=== PATIENT | male | born 1945 | race Caucasian/White ===

== ENCOUNTER 2018-05-11 12:26 | Inpatient (IN) ==
[2018-05-11] MEDS ORDERED: LEVAQUIN 500 MG/D5W 500 MG/100 ML IVPB IV SCH (13:45)
--- NOTE | 2018-05-11 15:57 | EKG Report ---
Test Performed on : 05/11/2018 3:56:16 PM Test Reason : chest pain Blood Pressure : / mmHG Vent. Rate : 081 BPM Atrial Rate : 081 BPM P-R Int : 116 ms QRS Dur : 078 ms QT Int : 372 ms P-R-T Axes : 083 079 085 degrees QTc Int : 432 ms Sinus rhythm. with occasional premature ventricular complexes. Otherwise normal ECG When compared with ECG of 14-APR-2017 13:02, premature ventricular complexes. are now present Confirmed by Renzo KOEHLER, Sergey Florence ([id number]) on 05/12/2018 5:44:41 PM
[2018-05-11] MEDS: DUONEB (A & A) INH PRN (16:30)
[2018-05-11 16:45] LABS: ALLEN TEST YES; BE 2.7 mmoll (-3.0-3.0); BLOOD TYPE ARTERIAL; HCO3-(ACT) 26.8 mmoll (20.0-26.0); O2(CT) 20.3 mL/dL (15.0-23.0); PO2(98.6) 79 mmHg (60-100); SAMPLE BLOOD; SAO2 97.3 % (95.0-100.0); THB 16.1 g/dL (11.5-17.4); pH(98.6) 7.35 (7.35-7.45)
[2018-05-11 16:48] LABS: PCO2(98.6) 54 mmHg (35-45)
[2018-05-11 16:49] LABS: MODALITY CANNULA; O2HB 89.5 % (95.0-99.0)
[2018-05-11 17:18] LABS: INR 0.94; PROTIME 13.3 Seconds (11.0-16.0)
[2018-05-11 17:51] LABS: TSH 1.26 uIUmL (0.27-4.20)
[2018-05-11] MEDS: ZOSYN 3.375 GM in NS 50 ML IV SCH (17:53)
[2018-05-11] MEDS: LOVENOX SUBQ SCH (17:54)
[2018-05-11] MEDS: SOLU-MEDROL IV SCH ×3 (17:54→23:28)
[2018-05-11] MEDS: PROTONIX IV SCH (17:54)
[2018-05-11] MEDS: SODIUM CHLORIDE 0.9% INJ SCH (17:54)
--- NOTE | 2018-05-11 18:42 | Diag Imaging Result Doc PS360 ---
EXAM: CT THORAX W/CONTRAST HISTORY: pneumonia TECHNIQUE: Emergency CT chest with contrast COMPARISON: 10/12/2013 FINDINGS: There is a small left-sided pleural effusion measuring approximately 18 mm posteriorly and inferiorly in the midline. No right-sided effusion. Left lower lobe opacity has an appearance more typical of a primary lung malignancy rather than pneumonia. This measures at least 3.8 x 5.2 cm. Adjacent to this is a smaller 2.0 cm nodule. There are several prominent left hilar lymph nodes. There is marked constriction on the left main pulmonary vein with possible tumor extending into the vein extending into the left atrium. No cardiomegaly. No thoracic aortic aneurysm or dissection. Severe emphysema. IMPRESSION: 1.Left lower lobe mass with postobstructive atelectasis and hilar adenopathy with constriction about the pulmonary vein and possible extension to the left atrium 2.Severe emphysema 3.Small left pleural effusion This exam was performed using automated exposure control, adjustment of mA or kV according to patient size, and/or use of iterative reconstruction technique. Electronically signed by Bryan Senior 05/11/2018 6:39 PM
--- NOTE | 2018-05-11 23:50 | HISTORY AND PHYSICAL ---
CHIEF COMPLAINT: Shortness of breath, cough, wheezing, not able to pee. HISTORY OF PRESENT ILLNESS: This is a 73-year-old white gentleman, noncompliant. Came to my office this morning after seen in the emergency room last night. Apparently, he was seen by Dr. Murray. He had a significant phimosis, not able to pee. He needs a circumcision. He also had weight loss and coughing for the last 1 month. The patient has a left hilar mass, with a lower lobe obstruction. He had a prior pneumoconiosis from asbestosis. Basically, admitted to the hospital for acute COPD exacerbation, evaluation of left lower lobe mass, and also bladder outlet obstruction at the phimosis level, for circumcision. Discussed with the patient's caregivers, which are his sisters. As a result, a hospital admission was warranted. 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 PAST SURGICAL HISTORY: Reported skin cancer from the face and prior stent placement in the heart. Details are not known. MEDICINES: Albuterol, aspirin, cephalexin, isosorbide 60 daily, lisinopril 20 daily, metformin 500 p.o. b.i.d., simvastatin 40 daily. ALLERGIES: Levaquin. SOCIAL HISTORY: . Two kids. Lives in [place]. Smoking 1 pack a day for the last 60 years. No smoking. No drug abuse. FAMILY HISTORY: Father of stroke at 84. Mom of old age. Sister had lung cancer. HEALTH MAINTENANCE: He is not up-to-date on vaccinations. PHYSICAL EXAMINATION: VITAL SIGNS: Temperature is 98 degrees. Vitals are stable. 5 feet 11, 153 pounds. HEENT: Titubation of the head noted. Small skin tags in the right upper eyelid. Pupils equal, react to light. Cataracts present TMs are normal. Nose and throat congested. NECK: Supple. No lymphadenopathy. No carotid bruit. CHEST: Poor air entry. Expiratory wheezing. Distant heart sounds. ABDOMEN: Belly is soft, nontender. Good bowel sounds. GENITOURINARY: Left inguinal hernia present. Phimosis present. RECTAL: Deferred. EXTREMITIES: Right foot, he has neuropathy calcis, with a pressure bandage applied. Decreased pulses on the left leg. NEUROLOGIC: No obvious neurological deficits. INVESTIGATIONS: PT/INR was normal. ABG: pH is 7.35, pCO2 54, PO2 79, on 28%. Cardiac enzymes were normal. ProBNP was normal. CEA level 9.1. PSA 1.64. B12 and TSH are normal. EKG: Normal sinus. Nothing acute for ischemia or injury current. Chest CT reported left lower lobe mass, with post obstruction, with hilar adenopathy, and severe emphysema, small left pleural effusion. CBC on 05/10/2018: White cell count 6.5, hematocrit 47, platelets 172,000. SMA-7: Sodium 141, potassium 4.9, chloride 101, BUN 21, creatinine 1.0, glucose 111, magnesium 2.0. LFTs were normal. ASSESSMENT AND PLAN: 1. A 73-year-old white gentleman admitted to the hospital with chronic obstructive pulmonary disease, prior pneumoconiosis from asbestosis, left hilar mass with atelectasis, needs a tissue diagnosis. Plan is oxygen, bronchodilators, and IV steroids, IV antibiotics. Consult with Dr. Walter for endobronchial biopsy. 2. Deep vein thrombosis prophylaxis with Lovenox. 3. 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 Continue on IV Zosyn. 4. Coronary artery disease. EKG was normal. Continue on secondary prevention with isosorbide, aspirin, simvastatin. 5. Hypertension, on lisinopril. 6. Hyperlipidemia, on Zocor. 7. Bladder outlet obstruction, with phimosis. Consult with Dr. Murray. Will plan to do both procedures simultaneously if possible during the bronchoscopy. 8. Highly suspicious for the lung cancer. We will also consult with Dr. Jung and reconcile home medications. We will follow up. cc: Juan Francisco James MD
[2018-05-12] MEDS: ZOSYN 3.375 GM in NS 50 ML IV SCH ×4 (00:18→17:40)
[2018-05-12] MEDS: SOLU-MEDROL IV SCH ×3 (05:26→21:30)
[2018-05-12] MEDS ORDERED: PYRIDIUM PO PRN (07:36)
[2018-05-12] MEDS: BREO ELLIPTA 200/25 MCG INH INH SCH (07:56)
[2018-05-12] MEDS: DUONEB (A & A) INH PRN ×3 (07:58→19:27)
[2018-05-12] MEDS ORDERED: ASPIRIN EC PO SCH (09:00)
[2018-05-12] MEDS: PRINIVIL PO SCH (09:48)
[2018-05-12] MEDS: IMDUR PO SCH (09:48)
[2018-05-12] MEDS: PROTONIX IV SCH (12:52)
--- NOTE | 2018-05-12 13:27 | PROGRESS NOTE ---
DATE: 05/12/2018 SUBJECTIVE: I was called by the patient's primary care physician yesterday regarding readmission to the hospital for biopsy of his lung lesion. The patient was seen as a consult over the weekend for concern for urinary retention and phimosis. The patient has a very tight phimotic ring which does cause him some discomfort as he is trying to urinate. He says it develops into pressure when trying to empty out through his phimotic excess foreskin. The patient has voided several times since admission and overall appears to be emptying his bladder. He did say that he voided this morning and had minimal discomfort at that time. Urology was consulted regarding consideration for circumcision while he is inpatient and try to coordinate with his bronchoscopy with pulmonary. OBJECTIVE: Vital signs: Heart rate 80, respirations 18, blood pressure 128/72 , oxygen saturation 94% on 2 L nasal cannula. General: No acute distress. Resting comfortably in bed. Obvious tremor-like activity with the patient moving [id number] repetitively throughout the evaluation. Respiratory: On nasal cannula. Slight increased work of breathing with a hoarse cough with some wheezing present, most prominent at the bases. Cardiovascular: No evidence tachycardia. Regular rate and rhythm. No evidence of lower extremity edema. Abdomen: Abdomen soft, nontender, nondistended. No palpable masses or hepatosplenomegaly. : Suprapubic tenderness. Bilateral testicles without masses or nodularity. His foreskin is quite tight with a very small phimotic ring with a very miniscule opening. Neurologic: Gross motor and sensory intact. The patient does have a resting essential tremor which he states has been present for a number of years. SKIN: Right lower extremity wrapped. ASSESSMENT AND PLAN: Mr. Haas is a 73-year-old with COPD, coronary artery disease, type 2 diabetes, essential tremor, hyperlipidemia, hypertension, recently diagnosed left lower lobe mass, who presents in evaluation for concern for urinary retention and phimosis. The patient overall empties his bladder well. He has a low PVR and likely has minimal prostatic voiding complaints. His major complaint is having to strain to empty out his foreskin. He describes it ballooning and it only dribbles and sprays out and that is due to the small opening present. The patient does have some discomfort by this and desires circumcision. Discussed with him the risks, benefits, and alternatives to surgical procedure including worsening pain, tethering of the penis, bleeding, infection, need for secondary procedures. The patient's primary physician would like to try to coordinate his care between Urology and Pulmonology. In talking with the OR today it seems that it may be difficult to coordinate both procedures as they need to be done in different rooms and scheduling may prohibit doing both at the same time. The patient is currently on the schedule to undergo a circumcision with cystoscopy tomorrow at approximately 12 o'clock. We will try to coordinate with Pulmonary if possible at the time of that versus another day. Offered an opportunity to undergo a circumcision and cystoscopy today. However, I told him it would likely be in the afternoon as there is already a full operating schedule and we would be an add-on case. He expressed desire to eat this morning and his NPO order was removed and the patient was able to eat. We will plan for him to be NPO at midnight for procedure tomorrow. cc: MD Juan Francisco Garay MD MTDD
--- NOTE | 2018-05-12 15:29 | ECHO REPORT ---
ORDER DATE: 05/11/2018 INDICATION: Embolism, hypertension, hyperlipidemia. History of lung cancer. FINDINGS: 1. The right atrium is normal size at 3.1 cm. 2. Moderate tricuspid regurgitation. The RV systolic pressure is estimated at 91 mmHg suggesting significant pulmonary hypertension. 3. The right ventricle appears to be normal in size with normal RV systolic function. 4. Trace pulmonic insufficiency. 5. Normal left atrial size at 3 cm. 6. No mitral valve prolapse. Mild mitral regurgitation. 7. Left ventricle appears to be normal in size with an end-diastolic dimension of 4.8 cm. Normal wall thicknesses with a posterior and interventricular septal thickness at 0.8 cm each. The LV systolic function does appear to be reduced. It is a somewhat difficult study as, at times, the patient appears to be tachycardic and views are difficult to obtain. Definity echo contrast was used. The EF estimate appears to be in the 35%-40% range. With Definity echo contrast, there appears to be some evidence of anterior septal hypokinesis. 8. Aortic valve opens well and is trileaflet. No evidence of stenosis or insufficiency. 9. The aorta appears normal on visualized segments. 10. No pericardial effusion seen. cc: MD Juan Francisco Kulkarni MD
--- NOTE | 2018-05-12 16:12 | CONSULTATION ---
DATE OF CONSULTATION: 05/12/2018 REQUESTING PROVIDER: Juan Francisco James MD. REASON FOR CONSULTATION: Lung cancer. 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 He has been admitted directly from Dr. James's office for acute COPD exacerbation, evaluation of left lower lobe mass and bladder outlet obstruction with phimosis. At the time of my exam, patient is lying in bed in no acute stress. Two of his sisters are at the bedside. He reports SOB and cough with scant phlegm for a while, but no hemoptysis, fever, chill, unintentional weight change, wheezing, chest pain or palpitation. PAST MEDICAL HISTORY: 1. Left lower lobe mass, newly found, without tissue diagnosis 2. COPD. 3. Coronary artery disease, status post coronary artery stenting. 4. Type 2 diabetes. 5. Essential tremors. 6. Hyperlipidemia. 7. Hypertension. 8. Left inguinal hernia. 9. Phimosis, too severe to be able to urinate; followed by Dr. Murray. 10. Pleural plaques due to asbestosis in the left lung. 11. Skin cancer 12. Tobacco abuse, ongoing. PAST SURGICAL HISTORY: 1. Sinus surgery 2. Coronary artery stenting SOCIAL HISTORY: The patient smokes one pack per day for the last 60 years. He tried to quit smoking one time for 2 weeks and failed. No history of alcohol or illicit drug use. smoking before for about two weeks, but failed. FAMILY HISTORY: Father of stroke at 84. Mother of old age. One sister, who is a heavy smoker, has lung cancer and diabetes. PHYSICAL EXAMINATION: Vital Signs: Temperature 97.8, blood pressure 128/72, pulse 80, respiratory rate 18, oxygen saturation 94% with nasal cannula at 2 L. General: Malnourished; uncontrollable body shaking with shaking voice and nodding head. HEENT: Trachea midline. Mucosa pink and moist; Cardiovascular: Regular rate and rhythm, without murmur noted. Respiratory: Patient has shallow breathing. diminished breathing sounds bibasilarly with early inspiratory crackles in the left lower lobe noted. No wheezing. Gastrointestinal: Normoactive bowel sounds in all 4 quadrants. Nontender, soft, nondistended. Extremities: Trace edema bilateral lower extremities. No clubbing, no cyanosis. Neurologic: Alert and oriented x 3, with general weakness. Speech is fluent. Able to more all extremities equally bilaterally. IMAGING DATA: CT on 05/11/2018 revealed a left lower lobe mass with postobstructive atelectasis and hilar adenopathy with constriction about the pulmonary vein and possible extension to the left atrium, severe emphysema and small left pleural effusion. 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 He has been admitted directly from Dr. James's office for acute COPD exacerbation, evaluation of the left lower lobe mass and bladder outlet obstruction with phimosis. 1. COPD exacerbation. Continue antibiotics, steroids and bronchodilators as prescribed. 2. Acute hypoxemic respiratory failure due to COPD exacerbation, left lower lobe mass and small pleural effusion. Will continue supplemental oxygen and bronchodilators. Will check ABG; routine ABG and CXR if indicated. 3. Left lower lobe mass, adjacent pulmonary nodule and left hilar lymphadenopathy. CT on 05/11/2018 showed left lower lobe mass measured at least 3.8 x 5.2 cm adjacent to a smaller 2 cm nodule with prominent left hilar lymphadenopathy. A diagnostic bronchoscopy is scheduled. 4. Continue GI and DVT prophylaxis. Thank you for the courtesy of this consult. Dictated by ADONAY Turner for Magno Walter MD cc: ADONAY Turner MD Jagan Reddy, MD [facility]
--- NOTE | 2018-05-12 18:18 | HEMO/ONC CONSULTATION ---
DATE: 05/12/2018 CHIEF COMPLAINT: We have been consulted for further evaluation and management of the patient's new lung mass. HISTORY OF PRESENT ILLNESS: Mr. Haas is a 73-year-old male who presented to the emergency department on 05/10/2018 complaining of shortness of breath, cough, wheezing, unable to urinate. The patient was seen by Dr. Murray at that time. The patient has significant ecchymosis, unable to pee and was discharged at that time to follow up with Dr. Murray as an outpatient. The patient presented to Dr. James's office the next day and the patient was still complaining of unable to urinate, shortness of breath and he had a chest x-ray done in the office due to weight loss and a cough until the last month, and that chest x-ray showed a left hilar mass with a lower lobe obstruction. The patient was admitted at that time for COPD exacerbation, evaluation of the left lower lobe mass, bladder outlet obstruction. PAST MEDICAL HISTORY: COPD, coronary artery disease, type 2 diabetes mellitus, essential tremor, hyperlipidemia, hypertension, left inguinal hernia, ecchymosis, plaques due to asbestosis in the left lung and tobacco abuse. PAST SURGICAL HISTORY: Skin cancer from face and prior stent placement in the heart. SOCIAL HISTORY: Smokes a pack a day. Denies any alcohol or illicit drug use. FAMILY HISTORY: Stroke, lung cancer. ALLERGIES: Allergic to Levaquin, caffeine and potassium. HOME MEDICATIONS: Aspirin 81 mg, Keflex, Imdur, Zestril, Glucophage, Medrol Dosepak, Pyridium and Zocor. REVIEW OF SYSTEMS: As mentioned in HPI. PHYSICAL EXAMINATION: Vital Signs: Temperature 97.8, heart rate 74, respiratory rate 18, blood pressure 139/86, 96% on nasal cannula. General: Patient is awake, lying in bed , no acute distress noted. HEENT: Anicteric. Pupils PERRLA. Mucous membranes appear to be dry. Neck: Supple. Trachea midline. Lymph node survey, no palpable lymphadenopathy. Chest: Bilateral breath sounds with expiratory wheezing. Cardiovascular: S1, S2. Regular rate and rhythm. Abdomen: Soft, nontender. Bowel sounds present in all quadrants. No hepatosplenomegaly noted. Skin: Warm, dry and intact. Right foot with pressure bandage applied. Neurologic: Alert and oriented x 3. No focal deficits noted. LABORATORY DATA: CEA is 9.1. RADIOLOGY RESULTS: Chest CT showed left lower lobe mass with a postobstructive atelectasis and hilar adenopathy with restriction of the pulmonary vein and possible extension to left atrium, severe emphysema, a small left pleural effusion. ASSESSMENT AND PLAN: 1. Left hilar mass: Dr. Walter has been consulted. Plans for an endobronchial biopsy. Continue to monitor and follow up on biopsy results. 2. Chronic obstructive pulmonary disease: Continue with oxygen and bronchodilators and steroids and antibiotics as ordered. 3. Type 2 diabetes mellitus: Continue with recommendations per primary medical team. 4. Coronary artery disease: Continue with recommendations per primary medical team. 5. Hypertension. 6. Hyperlipidemia. 7. Bladder outlet obstruction with thrombosis: Continue recommendation by Dr. Murray who has been consulted. Plan of care discussed with Dr. Jung. Dictated by ADONAY Shell for Jorge Alberto Jung MD Patient seen and examined. As above. Patient with a chronic smoking history, COPD, admitted with left hilar mass with possible extension to the left atrium. There are Saba has seen him with plans for bronchoscopy tomorrow. Check echocardiogram. CEA is 9.1. We will plan for a PET scan outpatient. Await pathology and decide further management. Jorge Alberto Jung M.D. cc: ADONAY Shell MD Jagan Reddy, MD [facility]
[2018-05-12] MEDS: ZOCOR PO SCH (21:30)
--- NOTE | 2018-05-13 00:56 | PROGRESS NOTE ---
DATE: 05/12/2018 SUBJECTIVE: Patient is a little better. The daughter was at bedside. REVIEW OF SYSTEMS: None reported. EXAM: Is 94% 3 L nasal cannula. Vitals are stable.HEENT: Titubation noted. Decreased breath sounds in the left base. Heart: Sounds are regular. Belly: Is soft, nontender. Phimosis present in inguinal hernia on the left side. Right leg I saw the pictures. He has some ulcers on the right ankle noted. LABORATORY DATA: ABG pH is 7.35, pCO2 54, PO2 79, carboxyhemoglobin 7. Cardiac enzymes are negative. ProBNP 713, CEA level 9.1. PSA 1.6, B12, TSH is normal. Echocardiography report, ejection fraction about 40%. Significant pulmonary hypertension based on the TR velocity. ASSESSMENT AND PLAN: 1. Left lower lobe mass waiting for tissue diagnosis. I appreciate Dr. Walter consult. Will do the bronchoscopy. 2. Phimosis with outlet obstruction. Circumcision as per Dr. Murray. 3. Ischemic cardiomyopathy, stable. 4. Diabetes. Will check the A1c tomorrow and right foot ulcers on wound care. Continue bronchodilators. Appreciated all the consultants. Will follow up. LEVEL OF DOCUMENTATION: 25 minutes. cc: Juan Francisco James MD
[2018-05-13] MEDS: ZOSYN 3.375 GM in NS 50 ML IV SCH ×4 (01:07→17:57)
[2018-05-13] MEDS: SOLU-MEDROL IV SCH ×3 (05:06→22:38)
--- NOTE | 2018-05-13 07:10 | PROGRESS NOTE ---
DATE: 05/13/2018 SUBJECTIVE: The patient was NPO at midnight last night in preparation for circumcision and cystoscopy today with Urology, and possible bronchoscopy with Pulmonary today, with a biopsy of his lung mass. The patient overall states he is doing well, he has been voiding without complaints. He denies any suprapubic tenderness or dysuria. Tolerated good p.o. intake yesterday. Remains on nasal cannula. OBJECTIVE: Vitals: Temperature 97.5 degrees, heart rate 70, blood pressure 119 /90, oxygen saturation 98% on 2 L nasal cannula. General: No acute distress. Resting comfortably in bed. Respiratory: 2 L nasal cannula, with slight increased work of breathing. No shortness of breath. Abdomen: Soft, nontender, nondistended. : No suprapubic tenderness. Phimotic ring present, with narrow opening. No erythema or swelling. ASSESSMENT AND PLAN: Mr. Haas is a 73-year-old with COPD, coronary artery disease, type 2 diabetes, essential tremor, hyperlipidemia, hypertension, recently diagnosed with left lower lobe mass, who presented in evaluation for urinary retention and phimosis. In talking with the patient he desires a circumcision to assist in his painful urination. He does not appear to have much prostatic voiding complaints, and his prostate is quite small on AILEEN. Discussed with him proceeding with circumcision today. Reviewed the risks, benefits, and alternatives including worsening pain, redness of the glans, tethering of the penis, bleeding, need for secondary procedures, risk of skin infections. Described the procedure in detail and reviewed each step of the procedure with the patient as well as discussed the risks and benefits of cystoscopy. We will plan to perform that later today in the operating room following his bronchoscopy. We will have to change rooms from the endo suite to the main OR, which has been cleared by Anesthesia and the OR board. All of the patient's questions and concerns were addressed. We will plan for the OR later today. cc: MD Juan Francisco Garay MD MTDD
[2018-05-13 07:19] LABS: HEMATOCRIT 46.4 % (42.0-52.0); HEMOGLOBIN 15.2 g/dL (14.0-18.0); MCHC 32.8 g/dL (33-37); MCV 91.5 FL (81-99); MPV 10.9 FL (7.4-10.4); RBC 5.07 XMIL (4.7-6.1); RDW 14.1 % (11.5-14.5); WBC 7.36 X1000 (4.8-10.8)
[2018-05-13 07:24] LABS: INR 0.97; PROTIME 13.6 Seconds (11.0-16.0)
[2018-05-13 07:29] LABS: HEMOGLOBIN A1C 8.7 % (4.8-6.0)
[2018-05-13] MEDS: PRINIVIL PO SCH (08:03)
[2018-05-13] MEDS: IMDUR PO SCH (08:03)
--- NOTE | 2018-05-13 08:55 | HEMO/ONC PROGRESS NOTE ---
DATE: 05/13/2018 SUBJECTIVE: Patient continues to slightly feel better at this time. He says his shortness of breath has improved with oxygen. OBJECTIVE: Vital Signs: Temperature 97.9 degrees, heart rate 68, respiratory rate 18, blood pressure 127/86 sat 100% on nasal cannula. General: Patient is awake, lying in bed, in no acute distress noted. HEENT: Anicteric. Pupils PERRLA. Mucous membranes are noted to be dry. Cardiovascular: Normal S1, S2. Regular rate and rhythm. Chest: Bilateral breath sounds diminished bilaterally with some crackles in the lower lobes. Abdomen: Soft, nontender. Bowel sounds present in all 4 quadrants. Neurologic: Alert and oriented x3. No focal deficits noted. LABORATORY DATA: White blood cell count 7.36, hemoglobin 15.2, hematocrit 46.4 , platelets are 175. ASSESSMENT/PLAN: 1. Left hilar mass: Plan is to biopsy today with Dr. Walter. Continue to monitor and follow up on biopsy results. 2. Chronic obstructive pulmonary disease: Continue recommendations per Pulmonology. 3. Ecchymosis without obstruction: The patient is scheduled for a circumcision and cystoscopy Continue per urologist recommendations. Plan of care discussed with Dr. Jung. Dictated by ADONAY Shell for Jorge Alberto Jung MD Patient seen and examined. As above. Patient is status post bronchoscopy. Discussed with Dr. Walter. He has an obstructive tumor involving a segment of the left lower lobe. Pathology results are pending. Plan for outpatient PET scan after discharge. Jorge Alberto Jung M.D. cc: ADONAY Shell MD Jagan Reddy, MD [facility]
[2018-05-13] MEDS: DUONEB (A & A) INH PRN ×2 (09:49→15:49)
[2018-05-13] MEDS: BREO ELLIPTA 200/25 MCG INH INH SCH (09:50)
[2018-05-13] MEDS ORDERED: SODIUM CHLORIDE 0.9% 10 ML ONE ×2 (10:22→10:23)
[2018-05-13] MEDS ORDERED: XYLOCAINE 2% VISCOUS ONE (10:22)
[2018-05-13] MEDS ORDERED: EPINEPHRINE ONE (10:22)
[2018-05-13] MEDS ORDERED: XYLOCAINE 2% ONE (10:22)
[2018-05-13] MEDS ORDERED: DIPRIVAN 1% ONE (12:30)
[2018-05-13] MEDS ORDERED: FENTANYL ONE (12:31)
[2018-05-13] MEDS ORDERED: AMIDATE ONE (12:48)
[2018-05-13] MEDS ORDERED: DECADRON ONE (12:49)
[2018-05-13] MEDS ORDERED: ZEMURON ONE (12:49)
[2018-05-13] MEDS ORDERED: BACITRACIN OINTMENT ONE (13:13)
[2018-05-13] MEDS ORDERED: MARCAINE 0.5% ONE (13:13)
[2018-05-13] MEDS ORDERED: KEFZOL 1 GM/D5W 1 GM/50 ML IVPB ONE (13:27)
[2018-05-13] MEDS ORDERED: NEOSTIGMINE ONE (13:33)
[2018-05-13] MEDS ORDERED: ROBINUL ONE (13:33)
[2018-05-13] MEDS ORDERED: VENTOLIN HFA ONE (13:35)
--- NOTE | 2018-05-13 14:43 | Diag Imaging Result Doc PS360 ---
EXAM: CHEST-PORTABLE HISTORY: post bronchoscopy TECHNIQUE: Chest single view COMPARISON: 04/14/2017 FINDINGS: The lungs are hyperexpanded. No pneumothorax. The heart is not enlarged. The vessels are not distended. There are no infiltrates. No effusion identified. There is a large calcified left-sided pleural plaque. IMPRESSION: No postprocedural pneumothorax. Electronically signed by Bryan Senior 05/13/2018 2:41 PM
[2018-05-13] MEDS: SODIUM CHLORIDE 0.9% INJ SCH (15:39)
[2018-05-13] MEDS: PROTONIX IV SCH (15:39)
[2018-05-13] MEDS: HUMALOG SUBQ SCH ×2 (17:58→22:50)
[2018-05-13] MEDS: ZOCOR PO SCH (22:38)
--- NOTE | 2018-05-13 23:51 | OPERATIVE NOTE ---
PROCEDURE DATE: 05/13/2018 REFERRING PHYSICIAN: Dr. James. PROCEDURE PERFORMED: This is a dictation for bronchoscopy. INDICATION: Lung mass and pneumonia on x-ray and CAT scan. DESCRIPTION OF PROCEDURE: Consent obtained. Conscious sedation administered by Anesthesia. We passed the bronchoscope through the LMA tube. Normal vocal cord movements. All major segments visualized. There is a left lower lobe superior segment blocking tumor, 100%. We took washings and brushings and endobronchial biopsies. No significant bleeding. Empirically, to prevent bleeding, we did spray diluted epinephrine. Chest x-ray guidance used. Fluoroscopy guidance used for sampling. Post procedure fluoroscopy x-ray showed no pneumothorax. The patient tolerated the procedure well. A chest x-ray is requested. IMPRESSION: 1. Lung mass. 2. 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 PLAN: Awaiting cytology, microbiology, and pathology results. cc: MD Juan Francisco Lang MD
[2018-05-14] MEDS: DUONEB (A & A) INH PRN ×4 (00:20→21:20)
[2018-05-14] MEDS: ZOSYN 3.375 GM in NS 50 ML IV SCH ×5 (00:25→23:08)
--- NOTE | 2018-05-14 03:37 | PROGRESS NOTE ---
DATE: 05/13/2018 SUBJECTIVE: The patient is doing better and no complaints. PHYSICAL EXAMINATION: Vital Signs: Temperature is 97 degrees. Vitals are stable. HEENT Examination: Titubation noted. Respiratory: Decreased breath sounds, left base. Cardiovascular: Distant heart sounds. Abdomen: Belly is soft, nontender. Extremities: Right foot ulcers are noted. INVESTIGATIONS: CBC is normal. PT/INR is normal. A1c 8.7. ASSESSMENT AND PLAN: 1. Waiting for bronchoscopy. Left lower lobe mass. Based on the histology, further recommendations will be followed. 2. Waiting for his circumcision for phimosis. 3. Diabetes. Follow up on insulin sliding scale with insulin coverage and decrease the intravenous steroids. 4. Ischemic cardiomyopathy, stable. 5. Appreciated all the consultants, Dr. Murray, Dr. Walter, and Dr. Jung. cc: Juan Francisco James MD
[2018-05-14] MEDS: HUMALOG SUBQ SCH ×4 (06:52→23:08)
[2018-05-14] MEDS: BREO ELLIPTA 200/25 MCG INH INH SCH (08:17)
[2018-05-14] MEDS: PRINIVIL PO SCH (08:52)
[2018-05-14] MEDS: IMDUR PO SCH (08:52)
--- NOTE | 2018-05-14 08:52 | HEMO/ONC PROGRESS NOTE ---
DATE: 05/14/2018 SUBJECTIVE: The patient continues to feel okay at this time. No new complaints. OBJECTIVE: Vital Signs: Temperature 97.7 degrees, heart rate 71, respiratory rate 18, blood pressure 148/81, saturation 99% on mask. General: The patient is awake, lying in bed. No acute distress noted. HEENT: Anicteric. Pupils PERRLA. Mucous membranes moist. Cardiovascular: S1, S2. Regular rate and rhythm. Chest: Bilateral breath sounds. Diminished bilaterally. Abdomen: Soft, nontender. Bowel sounds are present in all 4 quadrants. Neurologic: Alert and oriented x3. No focal deficits noted. ASSESSMENT AND PLAN: 1. Left hilar mass. The patient had bronchoscopy yesterday with Dr. Walter. The patient has an obstructive tumor involving left lower lobe. Pathology results are pending. Plan is for outpatient PET scan once he is discharged. Continue recommendations at this time. 2. Chronic obstructive pulmonary disease. Continue recommendations per Pulmonology. 3. Phimosis without obstruction. Continue recommendations per Urology. Dictated by ADONAY Shell for Jorge Alberto Jung MD cc: ADONAY Shell MD Jagan Reddy, MD [facility]
[2018-05-14] MEDS: SOLU-MEDROL IV SCH ×2 (08:53→23:08)
--- NOTE | 2018-05-14 08:53 | OPERATIVE NOTE ---
PROCEDURE DATE: 05/13/2018 PREOPERATIVE DIAGNOSES: 1. Phimosis. 2. Dysuria. 3. Urinary retention. POSTOPERATIVE DIAGNOSES: 1. Phimosis. 2. Dysuria. 3. Urinary retention. PROCEDURES: 1. Circumcision. 2. Cystoscopy. SURGEON: Antione Murray MD. HELPER METAL HANGING: None. ANESTHESIA: Endotracheal intubation. BLOOD LOSS: 10 mL. DRAINS: None. COMPLICATIONS: None. SPECIMENS REMOVED: Foreskin. Urine for cytology OPERATIVE FINDINGS: The patient had a very tight phimosis. It was difficult for him to urinate through. I was able to open this up with a Hemostat. I was able to extract over the head of the penis and the glans appeared to be relatively normal with the meatus slightly hypospadiac. Foreskin was able to retract over the head of the penis, which exposed the glans and appeared to be relatively normal. I performed a circumcision and had good approximation of skin edges. Following this, the patient underwent cystoscopy with flexible cystoscope which showed a normal urethra. No evidence of prostatic obstruction, no mucosal abnormalities in the bladder. There was a small amount of sediment that almost looked like crystals present in the bladder. These were extracted for analysis with Peeriojoann. We will send this as a specimen. INDICATION FOR PROCEDURE: Mr. Haas is a 73-year-old who initially presented to the emergency room over the weekend complaining of spraying of his urine, painful urination, inability to completely empty due to a very tight phimosis. The patient was able to urinate while in the emergency room and subsequently was going to be brought back to the office in several weeks for evaluation and planned circumcision. However, he was seen by his primary care physician on Friday who had recently diagnosed him with lung mass and plans to have a bronchoscopy performed by Pulmonary while inpatient. The patient was subsequently admitted with plans to undergo bronchoscopy and circumcision. In talking with the patient, I recommended proceeding to circumcision, as well as undergoing cystoscopy due to his voiding symptoms. Risks, benefits, and alternatives of both procedures were discussed with the patient and patient elected to proceed and informed consent was obtained. DESCRIPTION OF PROCEDURE: The patient was brought to the operating room, placed on the operating table in supine position. He underwent general anesthesia with placement of endotracheal tube. He received preoperative antibiotics and was then prepped and draped in usual sterile fashion. After this, a preoperative time-out was performed with all parties in agreement , including anesthesia, surgical, nursing staff. A penile block was then performed with 0.25% Marcaine injecting 20 mL. Following this, a hemostat was used to open up the foreskin, which allowed for easy retraction over the glans of the penis. This was retracted and able to be anatomical in appearance. There did appear to appropriate foreskin with a collar that appeared to be relatively normal in size and no internal incision was necessary because adequate length was already obtained. A Prolene stitch was then used as retraction stitch through the glans and then the external prepuce was then measured and then remeasured to ensure good positioning and appropriate lenght prior to incision. The scalpel was then used to excise the external foreskin circumferentially and attached several hemostats to the foreskin and then we were able to act as retractors. Metzenbaum scissors were then used to dissect the foreskin off the corporal bodies, and electrocautery was then used to cut the overlying foreskin circumferentially all the way around, removing the excess foreskin, which was then sent for pathology. Following this, hemostasis was obtained with electrocautery. Good hemostasis was visualized and then a 3-0 chromic suture was then placed at the 12 o'clock and 6 o'clock positions to bring the shaft skin and coronal collar together. Then approximated circumferentially with good approximation of skin edges bilaterally. Cosmetic result was obtained at which time the flexible scope was obtained and flexible cystoscopy was undertaken. The patient's meatus was slightly hypospadiac, but still on the glans itself. I was able to get the scope in, which showed a normal caliber urethra, no evidence of stricture disease. Entered all the way into the posterior urethra and found the prostate which was normal in size. No evidence of obstruction. Passed this all the way up into the bladder, inspecting the bladder. There were no mucosal abnormalities. No bladder stones in diverticulum, no cellules. There was a small amount of almost orange sediment present at the base of the bladder. This was barbotaged out and sent for analysis. It almost appeared to be crystal like in appearance. The patient's bladder was then drained with a Sharma catheter. Telfa with bacitracin was then applied circumferentially around the penis and a Efren wrap was then attached and secured with silk tape. The patient was then awoken and was taken to recovery in stable condition and we transferred back to the floor for recovery. DISPOSITION: The patient will have his dressing removed tomorrow and from Urology standpoint, likely be able to go home following this. cc: MD Juan Francisco Garay MD MTDD
--- NOTE | 2018-05-14 13:15 | PROGRESS NOTE ---
DATE: 05/14/2018 SUBJECTIVE: Postop day 1 from circumcision and cystoscopy. The patient has been doing well overnight. He denies any issues with voiding. Denies any penile pain. He states that he has been voiding with a good stream and denies any dysuria. The patient also underwent a bronchoscopy yesterday. Denies any shortness of breath or worsening cough. OBJECTIVE: Vital signs: Heart rate 78, blood pressure 145/77, oxygen saturation 95%. General: No acute distress. Resting comfortably in bed. Respiratory: Nasal cannula in place. Breathing comfortably without increased work of breathing. Abdomen: Soft, nontender, nondistended. : Circumcision site dressing was removed, continues to have a small amount of edema of penile shaft with glans slightly white with appearance of lichen sclerosis. Incision well-approximated with no evidence of any active bleeding. The patient has a glanular hypospadiac meatus. ASSESSMENT AND PLAN: Mr. Haas is a 73 year old who is postop day 1 from circumcision and cystoscopy. The patient's circumcision incision looks well healed. I removed his dressing this morning. The patient states he has been voiding without issue. Denies any penile pain or dysuria. Overall, I think he is doing well. From a urologic standpoint, he would be cleared to go home with follow-up in 1 month in the office. All patient's questions and concerns were addressed this morning. I told him to give us a call after discharge to schedule his follow-up appointment. The office previously called him to schedule an appointment after he was admitted to the hospital earlier in the week. cc: MD Juan Francisco Garay MD MTDD
[2018-05-14] MEDS: SODIUM CHLORIDE 0.9% INJ SCH (14:16)
[2018-05-14] MEDS: PROTONIX IV SCH (14:16)
[2018-05-14] MEDS: ZOCOR PO SCH (23:08)
--- NOTE | 2018-05-15 00:21 | PROGRESS NOTE ---
DATE: 05/14/2018 SUBJECTIVE: I appreciated Dr. Antione Murray's, and Dr. Walter's consults. Lung biopsy was done. I discussed with Dr. Brown, and he reported to me this afternoon cytology positive for non- small cells. Final diagnosis still pending. The patient is grossly tremulous, with essential tremor. REVIEW OF SYSTEMS: None reported. PHYSICAL EXAMINATION: Vital Signs: Temperature is 97 degrees, pulse is 76, blood pressure is 101/54. HEENT: Within normal limits. Chest: Clear. Heart: Sounds are regular. The rest of the exam is benign. ASSESSMENT AND PLAN: 1. Left lung mass, endobronchial obstruction, presumed to be lung malignancy, non-small cell. We will discuss with Dr. Jung. 2. Diabetes. Sliding scale, with insulin coverage. 3. Ischemic cardiomyopathy, stable. 4. Right foot ulcer, slowly healing. 5. Status post circumcision for phimosis, for bladder outlet obstruction. Continue present medical therapy. Will make the plans after discussing with Dr. Jung. I appreciate all the consultants. LEVEL OF DOCUMENTATION: 25 minutes. cc: Juan Francisco Jaems MD
[2018-05-15] MEDS: ZOSYN 3.375 GM in NS 50 ML IV SCH ×2 (05:42→13:04)
[2018-05-15] MEDS: HUMALOG SUBQ SCH ×2 (06:42→11:06)
--- NOTE | 2018-05-15 08:06 | HEMO/ONC PROGRESS NOTE ---
DATE: 05/15/2018 SUBJECTIVE: The patient continues to slightly feel better. Shortness of breath slowly improving. OBJECTIVE: Vital Signs: Temperature 97.9 degrees heart rate 70, respiratory rate 16, blood pressure 129/68, satting 97% on nasal cannula. General: Patient is awake, lying in bed with no acute distress noted. HEENT: Anicteric. Pupils PERRLA. Mucous membranes appear to be dry. Cardiovascular: S1, S2. Regular rate and rhythm. Chest: Bilateral breath sounds diminished bilaterally. Abdomen: Soft, nontender. Bowel sounds present in all 4 quadrants. Neurologic: Alert and oriented x3. No focal deficits noted. ASSESSMENT AND PLAN: 1. Left hilar mass: Preliminary results on pathology is non-small cell lung cancer colon. The patient, once he gets stronger and out of the hospital, we will get him scheduled for PET scan to begin treatment as soon as possible. We will continue to monitor closely. 2. Chronic obstructive pulmonary disease. Continue recommendations per Pulmonology and primary medical team. 3. Supportive care: Patient to continue drinking protein shakes and get out of bed as much as possible. 4. Deep venous thrombosis prophylaxis. Continue Lovenox as ordered. Plan of care discussed with Dr. Jung. Dictated by ADONAY Shell for Jorge Alberto Jung MD cc: ADONAY Shell MD Jagan Reddy, MD [facility]
[2018-05-15] MEDS: BREO ELLIPTA 200/25 MCG INH INH SCH (08:47)
[2018-05-15] MEDS: DUONEB (A & A) INH PRN (08:47)
[2018-05-15] MEDS: PRINIVIL PO SCH (09:32)
[2018-05-15] MEDS: SOLU-MEDROL IV SCH (09:32)
[2018-05-15] MEDS: IMDUR PO SCH (09:32)
[2018-05-15 11:53] VITALS: BP 119/64
[2018-05-15] MEDS: PROTONIX IV SCH (13:04)
[2018-05-15] MEDS: LOVENOX SUBQ SCH (13:05)
--- NOTE | 2018-05-16 23:59 | DISCHARGE SUMMARY ---
ADMISSION DATE: 05/11/2018 DISCHARGE DATE: 05/15/2018 DISCHARGE DIAGNOSIS: Acute shortness of breath due to underlying chronic obstructive pulmonary disease with [id number] lung cancer on the left lower lobe. 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 2. Coronary artery disease with ischemic cardiomyopathy. 3. Type 2 diabetes. 4. Essential tremor. 5. Hyperlipidemia. 6. Hypertension. 7. Left inguinal hernia. 8. Bladder outlet obstruction with phimosis. 9. Tobacco abuse. CONSULTANTS: 1. Jorge Alberto Jung MD. 2. Magno Walter MD. 3. Antione Murray MD. PROCEDURES: 1. Bronchoscopy with endobronchial tumor in the left lower lobe. 2. Circumcision and cystoscopy by Dr. Murray. BRIEF HISTORY: Please see the H and P that was done by Dr. James on 05/21/2018. In brief, he is a 73-year-old white gentleman admitted directly from my office with shortness of breath, cough, wheezing, and unable to urinate due to phimosis. He was seen in the ER the day before yesterday. He has other comorbid conditions as above. He is not maintaining his secondary prevention with underlying medical problems. Two of his sisters (caregivers) are patients of mine and wanted to seek medical attention. HOSPITAL COURSE: The patient was given oxygen, bronchodilators, IV antibiotics, IV steroids. Appropriate consultations were obtained. The patient had circumcision and cystoscopy done by Dr. Murray, and Dr. Walter did a bronchoscopy with biopsy of endobronchial tumor. Dr. Lacy reported it looked like non-small cell. Results were discussed with the patient, and Dr. Jung is going to follow up staging as an outpatient with a PET scan. Rest of the hospital course was uneventful. LABORATORIES: CBC: White cell count 7.3, hematocrit 46, platelets 175,000. PT 13, INR 0.97. ABG on 2 L: pH is 7.35, pCO2 of 54, pO2 of 79. A1c 8.7. Cardiac enzymes were negative. ProBNP 700. CEA level 9.1. PSA 1.6. B12 level 400. TSH was normal. RADIOLOGY PROCEDURES: Chest CT showed left lower lobe mass with adenopathy and severe emphysema. DISCHARGE INSTRUCTIONS: 1. Quit smoking. 2. Lisinopril 20 mg daily, isosorbide 60 daily, aspirin 81 mg daily, Zocor 40 daily, Medrol Dosepak, metformin 500 p.o. b.i.d., Levaquin 500 daily for 10 days. Continue on Breo 1 puff in the morning, Spiriva 1 in the evening. 3. Follow up with Dr. Jung for outpatient PET scan for staging and further treatment. cc: MD Jorge Alberto Veliz MD Mamoun I. Najjar, MD Patrick Guthrie, MD
== END 2018-05-15 16:32 | disposition home health service (06) | DRG 728 ==
LOC: DIRADM 12:26 → 3N 15:02
PROVIDERS: ADMIT Internal Medicine; ATTEND Internal Medicine
CPT/HCPCS: 71010; 71045; 71260; 76000; 80053; 81001; 82378; 82550; 82607; 82805; 82948; 83036; 83880; 84153; 84443; 84484; 85025; 85027; 85610; 87015; 87070; 87102; 87116; 87147; 87205; 87206; 88112; 88304; 88305; 88313; 88341; 88342; 88343; 93005; 93010; 93306; 94640; 94761; 96374; 96375; 99284; A9270; C8929; C9113; G0103; G0461; G0462; J0171; J0690; J1100; J1650; J1815; J1956; J2270; J2405; J2543; J2920; J3010; J7030; Q9957; Q9967; S0020; S0164; XXXXX

== ENCOUNTER 2019-05-18 19:33 | Inpatient (IN) ==
[2019-05-18] MEDS ORDERED: MORPHINE IV ONE (23:30)
[2019-05-18] MEDS ORDERED: PULMICORT INH ONE (23:32)
[2019-05-18] MEDS ORDERED: XOPENEX NEB INH ONE (23:33)
[2019-05-18] MEDS ORDERED: NS NEB INH SCH (23:45)
--- NOTE | 2019-05-19 00:27 | EKG Report ---
Test Performed on : 05/19/2019 00:24:45 AM Test Reason : SOB Blood Pressure : / mmHG Vent. Rate : 077 BPM Atrial Rate : 077 BPM P-R Int : 102 ms QRS Dur : 064 ms QT Int : 362 ms P-R-T Axes : 070 089 104 degrees QTc Int : [address] elevation, consider inferior injury or acute infarct ACUTE FL / STEMI Consider right ventricular involvement in acute inferior infarct Abnormal ECG When compared with ECG of 11-MAY-2018 15:56, Current undetermined rhythm precludes rhythm comparison, needs review ST elevation now present in Inferior leads ST now depressed in Lateral leads Unconfirmed Result
[2019-05-19 00:39] LABS: BASO# 0.09 X1000 (0.0-0.2); BASO% 2.7 % (0.0-0.8); EOS# 0.06 X1000 (0.0-0.7); EOS% 1.8 % (0.0-10.0); HEMOGLOBIN 12.4 g/dL (14.0-18.0); LYMPH# 0.74 X1000 (1.2-3.4); LYMPH% 22.4 % (20.5-51.1); MCH 29.2 PG (27-31); MCHC 31.8 g/dL (33-37); MONO# 0.58 X1000 (0.11-0.59); MONO% 17.5 % (1.7-9.3); MPV 11.6 FL (7.4-10.4); NEUT# 1.84 X1000 (1.4-6.5); NEUT% 55.6 % (42.2-75.2); PLT 130 X1000 (130-400); RBC 4.24 XMIL (4.7-6.1); RDW 17.6 % (11.5-14.5); WBC 3.31 X1000 (4.8-10.8)
[2019-05-19 01:00] LABS: AGAP 9; ALB/GLOB RATIO 1.9; ALBUMIN 3.7 g/dL (3.5-5.0); ALKALINE PHOSPHATASE 73 U/L (32-122); BUN 22 mg/dL (8-22); CALCIUM 9.1 mg/dL (8.8-10.2); CHLORIDE 99 mmol/L (98-107); COSMO 288; CREATININE 0.7 mg/dL (0.7-1.2); ESTIMATED GFR > 60; GLUCOSE 156 mg/dL (70-104); GOT 16 U/L (10-34); GPT 12 U/L (10-44); POTASSIUM 5.4 mmol/L (3.5-5.1); SODIUM 141 mmol/L (136-145); TCO2 33 mmol/L (25-35); TOTAL BILIRUBIN 0.32 mg/dL (0.20-1.00); TOTAL PROTEIN 5.7 g/dL (6.3-8.3)
[2019-05-19 01:02] LABS: ALLEN TEST YES; BE 8.9 mmoll (-3.0-3.0); BLOOD TYPE ARTERIAL; HCO3-(ACT) 31.9 mmoll (20.0-26.0); METHB 1.2 % (0.0-1.5); O2HB 96.3 % (95.0-99.0); PO2(98.6) 162 mmHg (60-100); SAMPLE BLOOD; SAO2 99.9 % (95.0-100.0); THB 12.3 g/dL (11.5-17.4); pH(98.6) 7.38 (7.35-7.45)
[2019-05-19 01:10] LABS: MODALITY BI PAP; PCO2(98.6) 61 mmHg (35-45)
--- NOTE | 2019-05-19 01:36 | PROVIDER DOCUMENTATION ---
This chart was entered by Radha Landers Scribe, acting as scribe for Yaneth Washnigton MD. HPI-Respiratory General - General Chief Complaint: Shortness of Breath Stated Complaint: COPD/LUNG CANCER PT Time Seen by Provider: 05/18/19 23:19 Source: patient, family Allergies/Adverse Reactions: Patient Allergies Allergy/AdvReac Type Severity Reaction Status Date / Time No Known Allergies Allergy Verified 05/20/19 16:15 Home Medications: Home Medication List Medication Instructions Recorded Confirmed Last Taken Type Aspirin EC 81 mg PO DAILY 10/12/13 05/19/19 05/18/19 08:00 History Isosorbide Mononitrate E.r. [Imdur] 30 mg PO DAILY 10/12/13 05/19/19 05/18/19 08:00 History SIMVAstatin [Zocor] 40 mg PO DAILY 10/12/13 05/19/19 05/18/19 08:00 History Metformin [Glucophage] 500 mg PO BID CC 05/11/18 05/19/19 05/18/19 08:00 History Vitamin B Complex [Super B-50 1 ea PO DAILY 05/19/19 05/19/19 05/18/19 08:00 History Complex] Zinc 50 mg PO DAILY 05/19/19 05/19/19 05/18/19 08:00 History Fluticasone/Vilanterol [Breo 1 ea INHALATION DAILY #1 aer.pow.ba 05/24/19 Unknown Rx Ellipta Inhaler] Levalbuterol Neb [Xopenex Neb] 1.25 mg .SEE ORDER TID #90 neb 05/24/19 Unknown Rx Levofloxacin [Levaquin] 500 mg PO DAILY #10 tab 05/24/19 Unknown Rx Methylprednisolone [Medrol Dosepak] 4 mg PO DIRECTED #1 pkg 05/24/19 Unknown Rx Primidone [Mysoline] 50 mg PO BID #60 tab 05/24/19 Unknown Rx Tiotropium [place] Inhaler 1 puff INH RTDAILY #30 inhaler 05/24/19 Unknown Rx [Spiriva] - History of Present Illness-Resp Nature of Presenting Problem: PT IS A 74 YOWM PRESENTING W/FAMILY TO ER W/CC SOB WORSENING LAST FEW DAYS. PT STS MVMT WORSENS SOB. PT ON 3L O2 AT HOME, NOT HAD TO INCREASE. PT HAS CPAP, WORKED 1ST NIGHT USED BUT HASN'T WORKED ANYMORE. NO COUGH, CP, AND FEVER. HX LUNG CANCER, COPD, WI, STENT AND DM. PT ON RX BABY ASPIRIN, IMDUR, AND METFORMIN . PT ON IMMUNOTHERAPY FOR CANCER. Severity in ED: reports: moderate Onset/Duration: reports: other (FEW DAYS) Timing: reports: still present Context: reports: other (LUNG CANCER PT, ON IMMUNOTHERAPY) Cough Quality/Degree: reports: no cough Episode Frequency: chronic episodes Current Respiratory Medication Therapy: Initiated other (O2 3L AT HOME) Modifying Factors: improves with: other (MVMT WORSENS) Associated Symptoms: reports: shortness of breath. denies: fever/chills, heart racing, hurts to breathe Similar Symptoms Previously?: Yes Recently seen or treated by another doctor?: Yes (CANCER PT ) Review of Systems - Adult - REVIEW OF SYSTEMS - ADULT Constitutional: reports: no symptoms reported. denies: fever, fatique, night sweats Eyes: reports: no symptoms reported Ears, Nose, Mouth & Throat: reports: no symptoms reported Cardiovascular: reports: no symptoms reported. denies: chest pain, orthopnea, PND Respiratory: reports: see HPI, dyspnea on exertion, shortness of breath. denies: cough, excessive sputum production, hemoptysis Gastrointestinal: reports: no symptoms reported Genitourinary: reports: no symptoms reported Musculoskeletal: reports: no symptoms reported Integumentary: reports: no symptoms reported Neurological: reports: no symptoms reported Psychiatric: reports: no symptoms reported Endocrine: reports: no symptoms reported Hematologic/Lymphatic: reports: no symptoms reported Allergic/Immunologic: reports: no symptoms reported All Other Systems: Reviewed and Negative Past History - Adult - PAST MEDICAL HISTORY-ADULT Review of Records: reports: Old Records Reviewed, Medications Reviewed, Social history reviewed & non-contributory. Major Childhood Illnesses: reports: denies history Cardiovascular: reports: HTN, hyperlipidemia, WI Respiratory: reports: COPD, cancer Gastrointestinal: reports: denies history Obstetrical/Gynecological: reports: denies history Genitourinary: reports: denies history Musculoskeletal: reports: denies history Neurological: reports: other (essential tremor for most of life, no treatment) Endocrine/Immune: reports: Diabetes Diabetes controlled by:: PO Meds Other Conditions: reports: other cancer - PRIOR SURGERIES/PROCEDURES Surgical/Procedure History: reports: cardiac stent, other - IMMUNIZATION STATUS Childhood Immunizations: See Nurse Assessment Flu Vaccine: See Nurse Assessment - FAMILY HISTORY Family History: reviewed, not pertinent - SOCIAL HISTORY Smoking: cigarettes, greater than 1 pack/day Provider spent 3-5 mins advising pt. on dangers of tobacco.: Discussed manners to quit use, and f/u contacts for add'l counseling. Substance Use: none/never Living Situation: family Physical Exam-General - PHYSICAL EXAM-ADULT Initial Vital Signs Reviewed: Yes - CONSTITUTIONAL General Appearance: alert, moderate distress (respiratory distress), cachetic. negative: lethargic, slow to respond, combative - EYES Eyes: PERRL/EOMI - HEAD, EARS, NOSE, MOUTH & THROAT HENMT: normocephalic/atraumatic, moist mucous membranes - NECK Neck: non-tender, full range of motion, supple, normal inspection - RESPIRATORY Respiratory: chest non-tender, no pleuratic chest pain, decreased breath sounds, accessory muscle use. negative: normal breath sounds, rhonchi, wheezing - CARDIOVASCULAR Cardiovascular: normal peripheral pulses, regular rate, rhythm - GASTROINTESTINAL (ABDOMEN) Abdominal Exam: normal bowel sounds, non tender, soft - MUSCULOSKELETAL Back Exam: normal inspection Extremity: normal range of motion, non-tender, normal inspection - SKIN Integumentary: normal turgor, warm/dry, pallor (SLIGHT). negative: normal color - NEUROLOGIC Neurologic: grossly normal, no motor/sensory deficits. negative: abnormal cerebellar tests, abnormal rating examiner II-XII, aphasia - PSYCHIATRIC Psych/Mental Status: normal thought content, normal thought process, oriented x 3, anxious Progress - PLAN OF CARE/RESULTS Progress/Plan/Lab Results: Orders Category Date Time Status Admit - [facility] Routine AdmDCTranf 05/19/19 03:14 Active Activity - Up with Assistance ORDERED Care 05/19/19 03:14 Active Apply Mechanical Device [QM] ORDERED Care 05/19/19 03:14 Completed Cardiac Monitoring DIRECTED Care 05/18/19 23:26 Completed FSBS/Accucheck Result AC + HS Care 05/19/19 03:14 Active Intake and Output-Strict Q 8-HR ASSESS Care 05/19/19 03:14 Active Nursing- MD Consult Request ROUTINE Care 05/19/19 03:14 Completed Nursing- MD Consult Request ROUTINE Care 05/19/19 03:14 Completed Nursing- Obtain EKG ONCE Care 05/18/19 23:26 Completed Z-Document. for Tele Applied ORDERED Care 05/19/19 03:14 Completed MD [Physician/Provider Consults] Routine Cons 05/19/19 03:14 Ordered Physician/Provider Consults Routine Cons 05/19/19 03:14 Ordered CHEST-2 VIEWS [RAD] Stat Exams 05/18/19 23:26 Completed ABG [RESP] Routine Lab 05/19/19 00:52 Completed BASIC METABOLIC PANEL [CHEM] Routine Lab 05/20/19 05:25 Completed CBC WITH DIFF [HEME] Routine Lab 05/20/19 05:25 Completed CBC WITH ELECTRONIC DIFF [HEME] Stat Lab 05/19/19 00:10 Completed COMPREHENSIVE METABOLIC PANEL [CHEM] Stat Lab 05/19/19 00:10 Completed INFLUENZA SCREEN A/B Stat Lab 05/19/19 00:25 Completed PRO B-NATRIURETIC PEPTIDE Stat Lab 05/18/19 00:10 Completed TROPONIN T HIGH SENSITIVITY Stat Lab 05/19/19 00:10 Completed TSH Stat Lab 05/19/19 00:10 Completed Acetaminophen [Tylenol] Med 05/19/19 03:14 Discontinued 650 mg PO Q6H PRN PRN Albuterol 2.5MG/Ipratrop 0.5MG [Duoneb (A & A)] Med 05/19/19 03:30 Dis continued 3 ml INH RTQ4H Aspirin EC Med 05/19/19 09:00 Discontinued 81 mg PO DAILY Budesonide [Pulmicort] Med 05/18/19 23:32 Discontinued 0.5 mg INH NOW ONE Insulin Human Regular [Humulin R] Med 05/19/19 07:00 Discontinued See Protocol SUBQ 0700,1100,1600,2100 Isosorbide Mononitrate E.r. [Imdur] Med 05/19/19 09:00 Discontinued 30 mg PO DAILY Levalbuterol Neb [Xopenex Neb] Med 05/18/19 23:33 Discontinued 1.25 mg INH NOW ONE Levofloxacin 500 mg/D5w [Levaquin 500 mg/D5w] Med 05/19/19 01:50 Discontinued 500 mg in 100 ml IV NOW Levofloxacin 500 mg/D5w [Levaquin 500 mg/D5w] Med 05/20/19 01:00 Discontinued 500 mg in 100 ml IV Q24H Mag Sulf/Vitamin B Comp W-C/Zn [Vicon-C] Med 05/19/19 09:00 Discontinued 1 each PO DAILY Morphine Med 05/18/19 23:30 Discontinued 2 mg IV NOW ONE Ondansetron [Zofran] Med 05/19/19 03:14 Discontinued 4 mg IV Q4H PRN PRN SIMVAstatin [Zocor] Med 05/19/19 09:00 Discontinued 40 mg PO DAILY Sodium Chloride 0.9% Neb [Ns Neb] Med 05/18/19 23:45 Discontinued 5 ml INH DIRECTED Zinc Sulfate Med 05/19/19 09:00 Discontinued 220 mg PO DAILY Aerosol Treatments Routine Oth 05/18/19 23:32 Completed Aerosol Treatments Routine Oth 05/19/19 03:14 Completed Aerosol Treatments Stat Oth 05/18/19 23:32 Completed Aerosol Treatments Stat Oth 05/19/19 03:14 Completed BIPAP Stat Oth 05/18/19 23:26 Active Telemetry [OM.EQ] Routine Oth 05/19/19 03:14 Active EKG [EKG] Stat Ther 05/18/19 23:25 Draft Transfer/Admit Order [TRANSFER] Routine Transfer 05/19/19 02:11 Completed Result Diagrams: 05/20/19 05:25 05/20/19 05:25 - REASSESSMENT Reassessment #1 Time Reassessed: 01:36 Status: improving (pt more relaxed and tolerating the BiPAP. not as jittery on exam. resp distress improving.) - EKG 1 Time of EKG reading by physician:: 00:24 EKG Read and Signed by:: Alex Marquis EKG Interpretation (*Must complete 3 of following elements*): Abnormal Rate: 77 Rhythm: UNDETERMINED RHYTHM [place]: normal QRS: normal MI Interval: normal ST Wave: normal Comments: +ARTIFACT PRESENT, PT HAS RESTING TREMOR - CONSULTS/PCP/HOSPITALIST Notification #1 *Consult/PCP/Hospitalist*: Dr. Garnett Time Discussed: 01:51 Consult Disposition: Will see in ED, Admit Departure - Departure Date of Disposition Decision: 05/19/19 Time of Disposition Decision: 01:37 DIAGNOSIS: Respiratory distress Disposition: ADMITTED INPATIENT 09 Certified Medical Emergency: Emergent Condition: Stable - Critical Care Note This patient required my direct & personal management of CC.: No Attestation - Physician/ JI Attestation Patient care was provided by Advanced Practice Provider:: No The physician spent face to face time with patient:: Yes Advanced Practice Provider documentation review:: Supervising physician onsite and consulted in the evaluation and care of this patient. The physician did have a face to face encounter with the patient. This chart was documented by the indicated scribe, (Radha Landers Scribe) and accurately reflects the services I performed and decisions made by me, Yaneth Washington MD, as attested by the provider's signature.
[2019-05-19] MEDS ORDERED: LEVAQUIN 500 MG/D5W 500 MG/100 ML IVPB IV ONE (01:50)
--- NOTE | 2019-05-19 02:56 | HISTORY AND PHYSICAL ---
PRIMARY CARE PHYSICIAN: Dr. James. CHIEF COMPLAINT: Shortness of breath. HISTORY OF PRESENTING ILLNESS: A 74-year-old male with a history of lung cancer, COPD, diabetes mellitus type 2 and coronary disease, who presented to emergency department with several days history of worsening shortness of breath. The patient states that recently CPAP machine quit working and he was unable to get the audiovisual lead technician out there to repair it. The patient states that over the past several days he was getting more short of breath, even with mild exertion and subsequently he had come to the emergency department. In the ED, he was evaluated, he seemed to be in some mild distress and he was put on BiPAP and he had marked improvement. Due to his presenting symptoms, it was thought that he will require admission for further management. At the time of my examination, patient denied any headache, nausea, vomiting, diarrhea, chest pain, hemoptysis, but complained of shortness of breath and cough. PAST MEDICAL HISTORY: Includes lung cancer, COPD, diabetes mellitus type 2, hypertension, hyperlipidemia, coronary artery disease. PAST SURGICAL HISTORY: Coronary stent. ALLERGIES: Goody's powders. CURRENT MEDICATIONS: Include albuterol nebulizers q.4 hours, aspirin 81 mg p.o. daily, isosorbide mononitrate 30 mg p.o. daily, metformin 500 mg p.o. b.i.d., simvastatin 40 mg p.o. daily. SOCIAL HISTORY: He is a former smoker, quit about 2 months ago. Denies any history of alcohol or illicit drug use. FAMILY HISTORY: No history of coronary artery disease. REVIEW OF SYSTEMS: Fourteen point review of system is as in HPI. Other systems negative. PHYSICAL EXAMINATION: GENERAL: The patient is resting more comfortably on BiPAP. VITAL SIGNS: Temperature 98.6 degrees, pulse 82, respirations 20, blood pressure 119/67. HEENT: Atraumatic, normocephalic. Extraocular movements intact. PERRLA. NECK: No masses. CHEST: Rhonchi. CARDIOVASCULAR: Regular rate and rhythm. ABDOMEN: Soft. Positive bowel sounds. EXTREMITIES: No edema. NEUROLOGIC: He is awake, alert, oriented x3. GENITOURINARY: No bladder distention. SKIN: Warm. LABORATORIES AND STUDIES: WBCs 3.31, hemoglobin 12.4, hematocrit 39.0, platelets 130,000. Blood gas shows pH of 7.38, pCO2 of 61. Sodium 141, potassium 5.4, chloride 99, CO2 is 33, BUN is 22, creatinine 0.7. Glucose is 156. ASSESSMENT: A 74-year-old male with a history of lung cancer, COPD, diabetes mellitus type 2, and hypertension, presents to emergency department with several days history of worsening shortness of breath. He was evaluated in the emergency department. He was in some mild distress, he was put on BiPAP and he had marked improvement. Due to his presenting symptoms, he will require admission for further management. 1. Acute on chronic respiratory failure. 2. Chronic obstructive pulmonary disease exacerbation. 3. Lung cancer. 4. Diabetes mellitus type 2. 5. Hypertension. PLAN: 1. We will admit patient to PVC. 2. Continue patient on BiPAP. 3. We will continue with DuoNebs and IV antibiotics. 4. Consult his oncologist. 5. Monitor blood glucose and put patient on sliding scale insulin regimen. 6. We will monitor blood pressure. Resume antihypertensive agent. 7. Put patient on DVT prophylaxis with SCDs. 8. We will continue to follow and reassess. Make further recommendation based on patient's clinical course. cc: Grady Garnett MD
[2019-05-19] MEDS: LEVAQUIN 500 MG/D5W 500 MG/100 ML IVPB IV SCH (03:14)
[2019-05-19] MEDS ORDERED: ZOFRAN IV PRN (03:14)
[2019-05-19] MEDS ORDERED: TYLENOL PO PRN (03:14)
[2019-05-19] MEDS: DUONEB (A & A) INH SCH ×6 (03:30→23:02)
--- NOTE | 2019-05-19 06:23 | Diag Imaging Result Doc PS360 ---
CHEST-2 VIEWS - 05/18/2019 INDICATION: SOB COMPARISON: 05/13/2018 FINDINGS: Stable severe COPD. Stable dense calcified pleural plaque in the left lateral lung. Stable pleural scarring at the left lung base. No infiltrates or edema. Heart size remains top normal. IMPRESSION: Severe COPD with pulmonary scarring. No change from prior. Electronically signed by Mario Vanessa 05/19/2019 6:20 AM
[2019-05-19] MEDS: HUMULIN R SUBQ SCH ×7 (06:39→21:45)
[2019-05-19] MEDS ORDERED: SODIUM CHLORIDE 0.9% INJ SCH (08:30)
[2019-05-19] MEDS: ASPIRIN EC PO SCH (10:04)
[2019-05-19] MEDS: SOLU-MEDROL IV SCH ×2 (10:05→16:11)
[2019-05-19] MEDS: PROTONIX IV SCH (10:07)
[2019-05-19] MEDS: ZOSYN 3.375 GM in NS 50 ML IV SCH ×3 (10:07→20:40)
[2019-05-19] MEDS: LOVENOX SUBQ SCH (10:09)
[2019-05-19] MEDS: ZOCOR PO SCH (10:10)
[2019-05-19] MEDS: ZINC SULFATE PO SCH (10:10)
[2019-05-19] MEDS: IMDUR PO SCH (10:10)
[2019-05-19] MEDS: VICON-C PO SCH (10:10)
--- NOTE | 2019-05-19 17:30 | HEMO/ONC CONSULTATION ---
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 HISTORY OF PRESENT ILLNESS: Mr. Haas is a 74-year-old male with a history of lung cancer, COPD, type 2 diabetes, and CAD, who presented to the emergency department with several-day history of worsening shortness of breath. He states that his CPAP machine has quit working and he has been unable to get a information technology technician to repair it. He states he has been getting more short of breath over the last few days, even with mild exertion. Per evaluation in the ER, he was in some mild distress, was placed on BiPAP and had marked improvement. He was admitted for further evaluation. The patient was also hospitalized in [facility] approximately a month ago, for shortness of breath and pain in his arm. He thought it was his heart, which was ruled out. He was placed on full-time home oxygen at that time at 3 L continuously. He noticed at that time his essential tremor had worsened. He had lost 8 pounds. The patient is treated in her office for left lung cancer. He is on immunotherapy with Imfinzi. He is dosed every two weeks. His last treatment was on 05/11/2019. His last PET scan showed a minimal decrease in his cancer. The patient does continue to smoke and his COPD is worsening. PAST MEDICAL HISTORY: Lung cancer, COPD, type 2 diabetes mellitus, hypertension, hyperlipidemia, coronary artery disease, and nicotine abuse. PAST SURGICAL HISTORY: Coronary stent. ALLERGIES: Goody's Powders. SOCIAL HISTORY: The patient is a smoker. He states he smokes only a few a day. He continues to smell of cigarette smoke in the office. I am aware that he has told the admitting physician that he quit about two months ago. He denies any history of alcohol or illicit drug abuse. REVIEW OF SYSTEMS: Pertinent positives are noted in the HPI. All other review of systems is negative. PHYSICAL EXAMINATION: Vital Signs: Temperature 97.5 degrees, pulse rate 77, respiratory rate 22, blood pressure 104/56, O2 saturation 98% on 3 L via nasal cannula. He is in 0/10 pain. General: The patient is in no acute distress, on BiPAP. He has essential tremor. He is underweight with a BMI of 17.2. HEENT: Sclerae is anicteric. Oral mucosa is dry. PERRLA. Cardiovascular: Regular rate and rhythm. Respiratory: Rhonchi heard throughout. Gastrointestinal: Abdomen is soft, nondistended, nontender. Bowel sounds are present. Extremities: No lower extremity edema noted. Neurological: Alert and oriented x3. Essential tremor to upper body. Skin: Warm, dry, and intact. No petechiae, ecchymoses, or rashes noted. LABORATORY DATA: WBC 3.31, hemoglobin 12.4, hematocrit 39.0, platelet count 130,000, ANC 1.84. Potassium 5.4. ProBNP 445. RADIOLOGY: Chest x-ray shows severe COPD with pulmonary scarring. There is no change from prior exam. ASSESSMENT: 1. Acute on chronic respiratory failure. 2. Chronic obstructive pulmonary disease exacerbation. 3. Stage 3 left lung squamous cell carcinoma with hilar adenopathy. Currently treated with Imfinzi. PLAN: The patient is currently awaiting a hospital bed while still in the ER. Continue him on BiPAP, consult Pulmonology. His hardware assembler is Laura De Jesus in [place]. Consult hardware assembler, Dr. Tamayo, for evaluation. Ensure the patient is on DVT prophylaxis with Lovenox and SCDs. We will continue to follow closely. Dictated by ADONAY Ferris for Jorge Alberto Jung MD cc: MD Juan Francisco Holley MD
[2019-05-19] MEDS: RESTORIL PO PRN (21:46)
[2019-05-20] MEDS: SOLU-MEDROL IV SCH ×3 (00:44→16:40)
[2019-05-20] MEDS: LEVAQUIN 500 MG/D5W 500 MG/100 ML IVPB IV SCH (00:49)
[2019-05-20] MEDS: ZOSYN 3.375 GM in NS 50 ML IV SCH ×4 (01:58→21:00)
[2019-05-20] MEDS: DUONEB (A & A) INH SCH ×6 (03:40→22:40)
[2019-05-20] MEDS: HUMULIN R SUBQ SCH ×5 (06:16→20:59)
[2019-05-20 06:51] LABS: AGAP 10; BUN 29 mg/dL (8-22); CALCIUM 8.9 mg/dL (8.8-10.2); CHLORIDE 96 mmol/L (98-107); COSMO 288; CREATININE 0.9 mg/dL (0.7-1.2); ESTIMATED GFR > 60; GLUCOSE 207 mg/dL (70-104); HEMOGLOBIN A1C 7.3 % (4.8-6.0); POTASSIUM 4.2 mmol/L (3.5-5.1); SODIUM 138 mmol/L (136-145); TCO2 32 mmol/L (25-35)
[2019-05-20 07:12] LABS: HEMATOCRIT 36.3 % (42.0-52.0); HEMOGLOBIN 11.7 g/dL (14.0-18.0); LYMPH# 0.41 X1000 (1.2-3.4); LYMPH% 10.6 % (20.5-51.1); MCH 29.8 PG (27-31); MCHC 32.2 g/dL (33-37); MCV 92.6 FL (81-99); MONO# 0.12 X1000 (0.11-0.59); MONO% 3.1 % (1.7-9.3); MPV 12.2 FL (7.4-10.4); NEUT# 3.32 X1000 (1.4-6.5); NEUT% 86.3 % (42.2-75.2); PLT 132 X1000 (130-400); RBC 3.92 XMIL (4.7-6.1); RDW 17.6 % (11.5-14.5); WBC 3.85 X1000 (4.8-10.8)
[2019-05-20] MEDS: SPIRIVA INH SCH (07:48)
[2019-05-20 07:53] LABS: BANDS 1 % (0-1); LYMPHS 12 % (21-51); MONO 2 % (1-9); SEGS 85 % (42-75)
[2019-05-20] MEDS: BREO ELLIPTA 100/25 MCG INH INH SCH (08:14)
[2019-05-20] MEDS: ZOCOR PO SCH (09:24)
[2019-05-20] MEDS: ZINC SULFATE PO SCH (09:24)
[2019-05-20] MEDS: IMDUR PO SCH (09:24)
[2019-05-20] MEDS: ASPIRIN EC PO SCH (09:25)
[2019-05-20] MEDS: VICON-C PO SCH (09:25)
[2019-05-20] MEDS: LOVENOX SUBQ SCH (09:28)
[2019-05-20] MEDS: PROTONIX IV SCH (09:32)
--- NOTE | 2019-05-20 12:59 | HEMO/ONC PROGRESS NOTE ---
DATE: 05/20/2019 SUBJECTIVE: Mr. Haas states he feels much better than he did yesterday. He is more comfortable with his breathing. His appetite is good. He denies any pain. He had no acute events overnight. OBJECTIVE: Vital Signs: Temperature 98.0 degrees, pulse rate 79, respiratory rate 16, blood pressure 105/67, O2 saturation 100% on nasal cannula at 2 L. He is in 0/10 pain. General: He is an underweight male in no acute distress. HEENT: Sclerae is anicteric. Oral mucosa is normal. PERRLA. Cardiovascular: Regular rate and rhythm. Normal S1, S2 noted. Respiratory: Clear to auscultation this morning. Abdomen: Soft, nondistended, nontender. Bowel sounds are present. Extremities: No lower extremity edema noted. Neurological: Alert and oriented x3. Essential tremor noted. Skin: Warm, dry, and intact. No petechiae, ecchymoses or rashes noted. LABORATORY DATA: WBCs 3.85, hemoglobin 11.7, hematocrit 36.3, platelet count 132. ANC 3.32. Creatinine 0.9, calcium 8.9. ProBNP 531. ASSESSMENT: 1. Acute on chronic respiratory failure, improving. 2. Chronic obstructive pulmonary disease exacerbation, improving. 3. Stage III left lung squamous cell carcinoma with hilar adenopathy. Currently treated with Imfinzi. 4. Deep venous thrombosis prophylaxis, with intermittent pneumatic devices. 5. Nutrition and deconditioning. Provide the patient protein shakes and allow him to get out of bed and do exercises. Dictated by ADONAY Ferris for Jorge Alberto Jung MD cc: MD Juan Francisco Holley MD [facility]
[2019-05-20] MEDS: RESTORIL PO PRN (21:10)
--- NOTE | 2019-05-20 22:09 | PROGRESS NOTE ---
DATE: 05/20/2019 SUBJECTIVE: A 74-year-old, white gentleman, admitted to the hospital yesterday with acute COPD exacerbation. The patient was not seen in my office since he left last year in May. INTERVAL HISTORY: Patient was admitted in [facility] a month ago. He was under the home health care and basically was brought in with shortness of breath and essential tremor. The patient was admitted in the [facility]. Denies any chest pain. PAST MEDICAL HISTORY: Reviewed. PAST SURGICAL HISTORY: Reviewed. MEDICINES: Reviewed. ALLERGIES: Not known. OBJECTIVE: Temperature is 98.6 degrees, pulse 85, blood pressure is 106/49. He was on BiPAP in the ER and now is off BiPAP this morning. He is not in respiratory distress since I saw him in the ER. He is extremely cachectic, tachypneic, tachycardic, tremulous. Poor air entry. Heart sounds very distant. Belly is soft, nontender. Good bowel sounds. No obvious neurological deficits. INVESTIGATIONS: White cell count 3.85, hematocrit 36, platelets 132,000. ABG, pH is 7.38, pCO2 is 60, PO2 is 162. Sodium 138, potassium 4.2, chloride 96, BUN 39, creatinine 0.9, glucose 207. A1c 7.3. CK 21. ProBNP 530. Influenza screen was negative. Chest x-ray, COPD with scarring in the left hilar area. EKG, normal sinus, nothing acute. ASSESSMENT/PLAN: 1. Acute chronic obstructive pulmonary disease exacerbation due to chronic obstructive pulmonary disease. 2. Essential tremor. 3. Stage III non-small cell lung cancer. Plan of care is BiPAP as needed, bronchodilators, IV Levaquin, IV steroids, IV Zosyn. I appreciate Dr. Jung's consult. Apparently, he is getting chemotherapy. Last PET scan, no evidence of active disease. 4. Type 2 diabetes. On diabetic diet. Will go on the sliding scale with insulin coverage. 5. Hyperlipidemia. On Zocor. 6. Deep vein thrombosis and gastrointestinal prophylaxis. As per order sheet. 7. Left inguinal hernia. Stable. 8. Coronary artery disease with ischemic cardiomyopathy. Continue on aspirin, Imdur, and Zocor. 9. Essential tremor. I discussed using primidone versus Topamax. We will follow up. I appreciate consultants. LEVEL OF DOCUMENTATION: 35 minutes. cc: Juan Francisco James MD
--- NOTE | 2019-05-20 23:59 | PULMONOLOGY CONSULTATION ---
DATE: 05/20/2019 REQUESTING CLINICIAN: Dr. Jung. REASON FOR CONSULTATION: COPD. HISTORY OF PRESENT ILLNESS: Mr. Haas is a 74-year-old with diffuse and severe emphysematous changes, who was diagnosed with a stage III lung cancer after 3 biopsies last spring. He has completed chemotherapy. His most recent PET scan continues to demonstrate active disease. The patient has history of coronary artery disease, and reports he was recently admitted to [facility] after he went there with left-sided arm pain. He reports the workup did not reveal the pain was related to his heart, and he was treated for COPD. His clay carman is Dr. Laura De Jesus. He reports he was discharged with a CPAP/BiPAP device, which was provided by [facility] with [facility]. He reports it worked perfectly the first night, but then the second night it would not supply him adequate air flow. He has had a decompensation following difficulty with his BiPAP. He reports he consulted [facility] but his device has not yet been evaluated. The patient presented to the emergency room with respiratory distress, and he improved with BiPAP. He reports he has been initiated on Symbicort in the past but thought there was limited benefit, and he could not afford the cost. He has had some cough with limited sputum production. PAST MEDICAL HISTORY: 1. 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 2. Lung cancer with stage III disease on immunotherapy. 3. Coronary artery disease. 4. Asbestos exposure with left-sided pleural plaques. 5. Type 2 diabetes mellitus. 6. Dyslipidemia. 7. History of skin cancer. 8. Essential tremor. 9. Type 2 diabetes mellitus. SOCIAL HISTORY: The patient is . He lives in [place]. He has 2 children. He reports he stopped smoking after his most recent hospitalization in [place]. He denies significant alcohol use. FAMILY HISTORY: Positive for lung cancer and strokes. REVIEW OF SYSTEMS: As noted in the HPI. PHYSICAL EXAMINATION: Physical exam reveals a frail, chronically ill-appearing male with a prominent tremor, who is conversant and in no distress. Blood pressure 135/59, heart rate 99, respiratory rate 20, oxygen saturation 97% on 3 L per nasal cannula. The patient is 127 pounds at 5 foot 11, with a BMI of 17.HEENT: Pupils are equal and reactive. He has bitemporal wasting. Oropharynx appears clear, with poor dentition. Neck is supple. Chest reveals markedly diminished breath sounds bilaterally, with minimal wheeze. Cardiac: Regular rate. Normal S1, normal S2. Abdomen is scaphoid and soft. Extremities are slightly cool to the touch. LABORATORY DATA: White blood count 3.85, hemoglobin 11.7, platelet count 132,000. Arterial blood gas reveals a pH 7.38, pCO2 of 61, pO2 of 162. IMPRESSION: A 74-year-old with: 1. Acute chronic obstructive pulmonary disease exacerbation. 2. Aqazh-pq-lherkit hypoxemic respiratory failure. 3. Chronic hypercapnic respiratory failure. 4. Lung cancer with residual disease identified on PET scan. 5. Cachexia, likely related to severe chronic obstructive pulmonary disease and underlying cancer. 6. Poor performance status. 7. Dysfunctional bilevel positive airway pressure device versus joy operator helper error. RECOMMENDATIONS: 1. Continue to treat COPD exacerbation as you are doing. 2. Cycle BiPAP and oxygen as needed. 3. Continue current antibiotic regimen. 4. Agree with evaluating recent records from [facility] as ordered by Dr. James. 5. Ask A to evaluate the patient's CPAP/BiPAP device to ensure he is using it correctly. He reports it worked once, but not on the following day. He has been instructed to bring this device to the hospital so that this issue can be addressed prior to discharge. cc: MD Juan Francisco Rivas MD Roshen Mathew
[2019-05-21] MEDS: SOLU-MEDROL IV SCH ×3 (00:08→16:31)
[2019-05-21] MEDS: LEVAQUIN 500 MG/D5W 500 MG/100 ML IVPB IV SCH (00:08)
[2019-05-21] MEDS: ZOSYN 3.375 GM in NS 50 ML IV SCH ×4 (02:35→20:10)
[2019-05-21] MEDS: DUONEB (A & A) INH SCH ×5 (03:05→19:16)
[2019-05-21] MEDS: HUMULIN R SUBQ SCH ×4 (06:41→20:10)
[2019-05-21] MEDS: BREO ELLIPTA 100/25 MCG INH INH SCH (07:39)
[2019-05-21] MEDS: SPIRIVA INH SCH (07:39)
[2019-05-21] MEDS: PROTONIX IV SCH (08:33)
[2019-05-21] MEDS: ZINC SULFATE PO SCH (08:38)
[2019-05-21] MEDS: ZOCOR PO SCH (08:38)
[2019-05-21] MEDS: ASPIRIN EC PO SCH (08:38)
[2019-05-21] MEDS: VICON-C PO SCH (08:38)
[2019-05-21] MEDS: IMDUR PO SCH (08:39)
[2019-05-21] MEDS: GLUCOPHAGE PO SCH ×2 (08:39→16:31)
[2019-05-21] MEDS: LOVENOX SUBQ SCH (08:40)
--- NOTE | 2019-05-21 13:05 | HEMO/ONC PROGRESS NOTE ---
DATE: 05/21/2019 SUBJECTIVE: Mr. Haas states he is much better than he has been. He feels well, feels like he could go home. He is comfortable with his breathing. His appetite is good. He continues to deny pain. He had no acute events overnight. OBJECTIVE: Vital Signs: Temperature 97.6 degrees, pulse rate 85, respiratory rate 16, blood pressure 108/52, O2 saturation 98% on nasal cannula at 3 L. He is in 0/10 pain. PHYSICAL EXAMINATION: General: The patient remains underweight, now in no acute distress. Cardiovascular: S1, S2. Regular rate and rhythm. Respiratory rate slightly increased. Lungs: Pretty clear to auscultation. Abdomen: Soft, nontender, nondistended. Bowel sounds positive. Extremities: No lower extremity edema noted. Neurological: Alert and oriented x3. Essential tremor. Skin: Warm, dry, and intact. No petechiae ecchymosis or rashes noted. LABORATORY: No laboratory was drawn today. No radiology was done today. ASSESSMENT AND PLAN: 1. End-stage chronic obstructive pulmonary disease with chronic hypoxemic and chronic hypercapnic respiratory failure. 2. 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 3. Deep venous thrombosis prophylaxis with intermittent pneumatic devices. 4. Nutrition and deconditioning. Continue to provide the patient with protein shakes at every meal and snack. Encourage him to get out of bed, do some exercises and move about. 5. Home BiPAP. The BiPAP company has gone out and looked at his BiPAP. They state is working correctly, that his flow rate may need to be increased. Dictated by ADONAY Ferris for Jorge Alberto Jung MD Patient seen and examined. As above. Patient reports that he is feeling much better. Continue current management. Nothing to add from hematology/oncology standpoint. Call over the weekend if needed. Jorge Alberto Jung MD cc: MD Juan Francisco Holley MD [facility]
--- NOTE | 2019-05-21 17:15 | PROVIDER PROGRESS NOTE ---
Progress Note Dr. Walter Progress Note/Pulmonary and or critical care We appreciated progress of care, Complications, change in diagnosis, and instructions to patient. Subjective: We note the level of consciousness, bed (chair) position, family presence (if any), level of lethargy, feeling of symptoms, and changes from baseline condition/symptom. Patient is sitting in bed with severe tremor. He is on NC 3L at this time and tolerates well. He states he is feeling good. He rested well overnight. He does have good appetite this morning. He reports no frequent cough or pain. RN at the bedside reports that he has not received the records from [facility] yet. Objective: Vital Signs: We reviewed EMR current values for Pulse rate, Blood pressure, Pulse rate, respiratory rate and Pulse oximetry. Also noted other values and trends if present (e.g. I/O, CVP). T 98.1 (No fever in last 24 hours), NH 89, RR 22, BP 135/61 and SaO2 98% on NC 3L. Physical Examination: General: Chronically ill appearing. Sitting in bed with no acute distress noted. Severe tremor noted. HEENT: Atraumatic. Trachea midline. Mucosa pink and moist. Poor dentition. Respiratory: Mild tachypnea. No increased work of breathing. No accessory muscle use. Symmetrical excursion. Auscultation reveals significantly diminished breathing sounds bilaterally with no wheezing noted at this time. CVS: Regular rate and rhythm with S1 and S2 appreciated. Abdomen: Soft. Non-tender. Scaphoid. Normoactive bowel sounds in all 4 quadrants. Extremities: No pedal edema. No cyanosis. No clubbing. Cold to touch. Dorsalis pedis diminished bilaterally. Neuro: A/O x4. Speech fluent. Answer questions. Following commands. Labs and Radiology: Reviewed available labs and radiology values available at time of EMR review. Laboratory Results 05/20/19 05/20/19 05/21/19 16:09 19:27 06:29 POC Glucose 211 H 263 H 227 H 05/21/19 05/21/19 11:03 16:56 POC Glucose 244 H 177 H Assessment: Acute on chronic hypoxemic respiratory failure. Chronic hypercapnic respiratory failure. COPD exacerbation. Stage III left lung cancer with residual disease identified on PET scan. Cachexia, likely related to severe COPD and underlying cancer. Tobacco use. Plan: Continue current treatment and supportive care per admitting and other teams on the case. Continue supplemental oxygen and BiPAP as needed. Antibiotic (Levaquin and Zosyn). Solu-Medrol. Tapering down. Bronchodilators. DVT and GI prophylaxis. Input was appreciated from Admitting MD and other teams on the case. Evaluation time in minutes: 31 minutes.
--- NOTE | 2019-05-21 21:36 | PROGRESS NOTE ---
DATE: 05/21/2019 SUBJECTIVE: The patient is off the BiPAP machine and still has shortness of breath and is excessively tremulous. I appreciate Dr. Tamayo's consult. OBJECTIVE: Vital Signs: Temperature 97.8, pulse 103. Vitals are stable. 3 L nasal cannula, 100%. General: Cachectic, emaciated. Neck: Supple. Lungs: Poor air entry. Cardiovascular: Distant heart sounds. Abdomen: Belly is soft, nontender. Neurologic: No obvious deficits. INVESTIGATIONS: None reported. ASSESSMENT: 1. Acute chronic obstructive pulmonary disease exacerbation. 2. Stage III non-small cell lung cancer. 3. Deconditioning. 4. Essential tremor. 5. Cachexia. 6. Type 2 diabetes. PLAN OF CARE: 1. Out of bed with physical therapy. 2. Deep venous thrombosis prophylaxis with Lovenox. 3. Continue treatment for chronic obstructive pulmonary disease with bronchodilators, IV steroids and IV antibiotics. 4. Type 2 diabetes on metformin. 5. Appreciated Dr. Tamayo's and Dr. Jung's consults. Will discuss the disposition. Still waiting for the reports from [facility]. LEVEL OF DOCUMENTATION: Twenty-five minutes. cc: Juan Francisco James MD
[2019-05-21] MEDS: RESTORIL PO PRN (22:41)
[2019-05-22] MEDS: DUONEB (A & A) INH SCH ×7 (00:15→23:00)
[2019-05-22] MEDS: LEVAQUIN 500 MG/D5W 500 MG/100 ML IVPB IV SCH (01:04)
[2019-05-22] MEDS: ZOSYN 3.375 GM in NS 50 ML IV SCH ×4 (02:29→20:52)
[2019-05-22] MEDS ORDERED: SOLU-MEDROL IV SCH (04:30)
[2019-05-22] MEDS: HUMULIN R SUBQ SCH ×4 (06:12→20:52)
[2019-05-22] MEDS ORDERED: POTASSIUM CHLORIDE 20% LIQUID PO ONE (06:49)
[2019-05-22] MEDS: BREO ELLIPTA 100/25 MCG INH INH SCH (07:36)
[2019-05-22] MEDS: SPIRIVA INH SCH (07:37)
[2019-05-22] MEDS: LOVENOX SUBQ SCH (07:49)
[2019-05-22] MEDS: IMDUR PO SCH ×2 (07:49→09:47)
[2019-05-22] MEDS: ZOCOR PO SCH ×2 (07:49→09:48)
[2019-05-22] MEDS: PROTONIX IV SCH (07:49)
[2019-05-22] MEDS: ZINC SULFATE PO SCH ×2 (07:49→09:47)
[2019-05-22] MEDS: VICON-C PO SCH ×2 (07:49→09:47)
[2019-05-22] MEDS: GLUCOPHAGE PO SCH ×2 (07:49→16:17)
[2019-05-22] MEDS: ASPIRIN EC PO SCH ×2 (07:50→09:47)
--- NOTE | 2019-05-22 11:46 | PROGRESS NOTE ---
DATE: 05/22/2019 SUBJECTIVE: I did review the reports from [facility]. He was admitted April 19 until April 28. He was treated for acute COPD exacerbation and nevertheless, he is feeling better and is extremely cachectic. PHYSICAL EXAMINATION: Vital signs: Temperature is 98 degrees, pulse 79, blood pressure 130/72, 3 L nasal cannula 100%. HEENT: Within normal limits. Neck: Supple. Lungs: Poor air entry. Heart: Distant heart sounds. Abdomen: Belly is soft, nontender. Neurologic: No obvious deficits. INVESTIGATIONS: None reported. ASSESSMENT: 1. Acute chronic obstructive pulmonary disease exacerbation. 2. Ischemic cardiomyopathy. 3. Cachexia. 4. Essential tremor. 5. Type 2 diabetes. PLAN OF CARE: Out of the bed with Physical Therapy. Continue bronchodilators, IV steroids, IV antibiotics, oxygen. We will discuss with Dr. Tamayo or Dr. Walter for noninvasive ventilation at home since he was admitted recently a couple of times. Stage III non-small lung cancer appears to be stable by recent PET scan, under the care of Dr. Jung. LEVEL OF DOCUMENTATION: 25 minutes. cc: Juan Francisco James MD
--- NOTE | 2019-05-22 11:55 | PROVIDER PROGRESS NOTE ---
Progress Note Dr. Walter Progress Note/Pulmonary and or critical care We appreciated progress of care, Complications, change in diagnosis, and instructions to patient. Subjective: We note the level of consciousness, bed (chair) position, family presence (if any), level of lethargy, feeling of symptoms, and changes from baseline condition/symptom. Patient is sitting in bed with severe tremor. He is on NC 3L which apparently is his baseline oxygen requirement. He states he is feeling ok. He has no frequent cough or pain, but still SOB with activities. He states he breaths fine if he stays in bed, but once he gets up, he has SOB. No bowel concern at this time. Objective: Vital Signs: We reviewed EMR current values for Pulse rate, Blood pressure, Pulse rate, respiratory rate and Pulse oximetry. Also noted other values and trends if present (e.g. I/O, CVP). T 97.5 (No fever in last 24 hours), IA 77, RR 17, BP 106/57 and SaO2 100% on NC 3L. Physical Examination: General: Chronically ill appearing. Sitting in bed with no acute distress noted. Severe tremor noted. HEENT: Atraumatic. Trachea midline. Mucosa pink and moist. Poor dentition. Respiratory: Even and unlabored. No increased work of breathing. No accessory muscle use. Symmetrical excursion. Auscultation reveals significantly diminished breathing sounds bilaterally with some mild crackles bibasilarly. CVS: Regular rate and rhythm with S1 and S2 appreciated. Abdomen: Soft. Non-tender. Scaphoid. Normoactive bowel sounds in all 4 quadrants. Extremities: No pedal edema. No cyanosis. No clubbing. Cold to touch. Dorsalis pedis diminished bilaterally. Neuro: A/O x4. Speech fluent. Answer questions. Following commands. Labs and Radiology: Reviewed available labs and radiology values available at time of EMR review. Laboratory Results 05/21/19 05/22/19 05/22/19 19:51 06:05 11:40 POC Glucose 216 H 228 H 172 H 05/22/19 17:13 POC Glucose 187 H Assessment: Acute on chronic hypoxemic respiratory failure. Chronic hypercapnic respiratory failure. COPD exacerbation. Improving. Stage III left lung cancer with residual disease identified on PET scan. Cachexia, likely related to severe COPD and underlying cancer. Tobacco use. Plan: Continue current treatment and supportive care per admitting and other teams on the case. Continue supplemental oxygen and BiPAP as needed. Antibiotic (Levaquin and Zosyn). Solu-Medrol. Tapering down. Bronchodilators. DVT and GI prophylaxis. Input was appreciated from Admitting MD and other teams on the case. Evaluation time in minutes: 31 minutes.
[2019-05-22] MEDS: SOLU-MEDROL IV SCH (15:30)
[2019-05-22] MEDS: RESTORIL PO PRN (22:21)
[2019-05-23] MEDS: LEVAQUIN 500 MG/D5W 500 MG/100 ML IVPB IV SCH (00:28)
[2019-05-23] MEDS: ZOSYN 3.375 GM in NS 50 ML IV SCH ×5 (02:02→20:45)
[2019-05-23] MEDS: DUONEB (A & A) INH SCH ×6 (03:25→23:19)
[2019-05-23] MEDS: SOLU-MEDROL IV SCH (04:04)
[2019-05-23] MEDS: HUMULIN R SUBQ SCH ×4 (06:21→20:44)
[2019-05-23] MEDS: SPIRIVA INH SCH (07:24)
[2019-05-23] MEDS: BREO ELLIPTA 100/25 MCG INH INH SCH (07:24)
[2019-05-23] MEDS: ZINC SULFATE PO SCH (08:25)
[2019-05-23] MEDS: GLUCOPHAGE PO SCH ×2 (08:25→16:41)
[2019-05-23] MEDS: IMDUR PO SCH (08:25)
[2019-05-23] MEDS: VICON-C PO SCH (08:25)
[2019-05-23] MEDS: ASPIRIN EC PO SCH (08:25)
[2019-05-23] MEDS: PROTONIX IV SCH (08:25)
[2019-05-23] MEDS: ZOCOR PO SCH (08:25)
[2019-05-23] MEDS: LOVENOX SUBQ SCH (08:26)
--- NOTE | 2019-05-23 10:47 | PROGRESS NOTE ---
DATE: 05/23/2019 SUBJECTIVE: The patient is getting better. He is grossly tremulous, cachectic, and he is asking for BiPAP machine and concentrator oxygen. [employer] was consulted. PHYSICAL EXAMINATION: Vital Signs: Temperature is 97 degrees, pulse 78. Vitals are stable. Lungs: Poor air entry. Heart: Heart sounds are regular. Abdomen: Belly is soft, nontender. Neurologic: No obvious deficits. ASSESSMENT: 1. Acute chronic obstructive pulmonary disease exacerbation. 2. Stage III non-small cell lung cancer. 3. Essential tremor. 4. Coronary artery disease. 5. Diabetes. PLAN: 1. Decreased IV steroids. 2. Added primidone for essential tremor. 3. director of housing and energy services for outpatient noninvasive ventilator support along with [employer] oxygen concentrator. Planning to discharge in the morning and continue present treatment with physical therapy. LEVEL OF DOCUMENTATION: 25 minutes. cc: Juan Francisco James MD
--- NOTE | 2019-05-23 11:08 | PROVIDER PROGRESS NOTE ---
Progress Note Dr. Walter Progress Note/Pulmonary and or critical care We appreciated progress of care, Complications, change in diagnosis, and instructions to patient. Subjective: We note the level of consciousness, bed (chair) position, family presence (if any), level of lethargy, feeling of symptoms, and changes from baseline condition/symptom. Patient is sitting at the edge of the bed with severe tremor. He stays on NC 3L which is his baseline oxygen requirement. He states he is feeling ok. He has no frequent cough or pain, but still SOB with activities, which apparently is common for him with severe COD and lung cancer. Objective: Vital Signs: We reviewed EMR current values for Pulse rate, Blood pressure, Pulse rate, respiratory rate and Pulse oximetry. Also noted other values and trends if present (e.g. I/O, CVP). T 97.2 (No fever in last 24 hours), IN 78, RR 17, BP 116/70 and SaO2 99% on NC 3L. Physical Examination: General: Chronically ill appearing. Sitting in bed with no acute distress noted. Severe tremor noted. HEENT: Atraumatic. Trachea midline. Mucosa pink and moist. Poor dentition. Respiratory: Even and unlabored. No increased work of breathing. No accessory muscle use. Symmetrical excursion. Auscultation reveals significantly diminished breathing sounds bilaterally with some mild crackles bibasilarly. CVS: Regular rate and rhythm with S1 and S2 appreciated. Abdomen: Soft. Non-tender. Scaphoid. Normoactive bowel sounds in all 4 quadrants. Extremities: No pedal edema. No cyanosis. No clubbing. Cold to touch. Dorsalis pedis diminished bilaterally. Neuro: A/O x4. Speech fluent. Answer questions. Following commands. Labs and Radiology: Reviewed available labs and radiology values available at time of EMR review. Laboratory Results 05/22/19 05/23/19 05/23/19 20:09 06:09 11:27 POC Glucose 218 H 200 H 191 H 05/23/19 16:01 POC Glucose 199 H Assessment: Acute on chronic hypoxemic respiratory failure. Chronic hypercapnic respiratory failure. COPD exacerbation. Improving. Stage III left lung cancer with residual disease identified on PET scan. Cachexia, likely related to severe COPD and underlying cancer. Tobacco use. Plan: Continue current treatment and supportive care per admitting and other teams on the case. Continue supplemental oxygen and BiPAP as needed. Antibiotic (Levaquin and Zosyn). Solu-Medrol. Tapering down. Bronchodilators. Incentive spirometer. DVT and GI prophylaxis. Input was appreciated from Admitting MD and other teams on the case. Evaluation time in minutes: 32 minutes.
[2019-05-23] MEDS: MYSOLINE PO SCH (20:37)
[2019-05-23] MEDS: RESTORIL PO PRN (22:43)
[2019-05-24] MEDS: LEVAQUIN 500 MG/D5W 500 MG/100 ML IVPB IV SCH (02:34)
[2019-05-24] MEDS: DUONEB (A & A) INH SCH ×3 (03:25→11:30)
[2019-05-24] MEDS: ZOSYN 3.375 GM in NS 50 ML IV SCH ×2 (03:35→12:35)
[2019-05-24] MEDS: HUMULIN R SUBQ SCH ×2 (06:19→12:16)
[2019-05-24] MEDS ORDERED: PREVNAR 13 IM ONE (08:03)
[2019-05-24] MEDS: BREO ELLIPTA 100/25 MCG INH INH SCH (08:23)
[2019-05-24] MEDS: SPIRIVA INH SCH (08:24)
[2019-05-24] MEDS ORDERED: SOLU-MEDROL IV SCH (09:00)
[2019-05-24] MEDS: VICON-C PO SCH (09:47)
[2019-05-24] MEDS: PROTONIX IV SCH (09:47)
[2019-05-24] MEDS: MYSOLINE PO SCH (09:47)
[2019-05-24] MEDS: GLUCOPHAGE PO SCH (09:47)
[2019-05-24] MEDS: ASPIRIN EC PO SCH (09:47)
[2019-05-24] MEDS: ZINC SULFATE PO SCH (09:47)
[2019-05-24] MEDS: LOVENOX SUBQ SCH (09:47)
[2019-05-24] MEDS: IMDUR PO SCH (09:47)
[2019-05-24] MEDS: ZOCOR PO SCH (09:51)
[2019-05-24 11:50] VITALS: BP 117/67
--- NOTE | 2019-05-29 | DISCHARGE SUMMARY ---
ADMISSION DATE: 05/19/2019 DISCHARGE DATE: 05/24/2019 DISCHARGING DIAGNOSIS: Acute respiratory failure due to chronic obstructive pulmonary disease exacerbation. SECONDARY DIAGNOSES: 1. Stage III non-small cell lung cancer under chemotherapy and radiation by Dr. Jung, in remission. 2. Diabetes, hypertension, hyperlipidemia, coronary artery disease, protein calorie malnutrition, essential tremor. CONSULTS: 1. Dr. Jung. 2. Dr. Tamayo. BRIEF HISTORY: Please see the history and physical that was done on 05/18/2019. In brief, he is a 74-year-old white male basically admitted to the hospital with shortness of breath, excessive shakiness. He was recently admitted in [facility]. HOSPITAL COURSE: The patient was given BiPAP, oxygen, bronchodilators, IV steroids, IV antibiotics. He was using oxygen at home and also noninvasive ventilator support. He had an extensive workup done in [facility]. He has been diagnosed with non-small cell lung cancer. After chemotherapy and radiation, the last PET scan appears to be in remission. [employer] consult was obtained for having noninvasive ventilator support in the nighttime, and also portable oxygen. The rest of the hospital course was uneventful. LABS: CBC: White cell count 3.8, hematocrit 36, platelets 132,000. Sodium 138, potassium 4.2, chloride 96, BUN 29, creatinine 0.9. Glucose 207, A1c 7.3. CK, proBNP were normal. Chest x-ray: Severe COPD, prominent left hilum. DISCHARGE INSTRUCTIONS: 1. Pneumococcal vaccine 13 was given 05/24/2019. 2. Oxygen 2 L. 3. Isosorbide 30 mg daily, aspirin 81 mg daily, simvastatin 40 daily, metformin 500 p.o. b.i.d., zinc 50 mg daily, Breo 1 puff daily 100/12.5, Levaquin 500 daily, primidone 50 p.o. b.i.d., Spiriva 1 puff daily, Medrol Dosepak, Xopenex 1 puff t.i.d., oxygen 2 L. 4. Noninvasive ventilator support. 5. Follow up in my office in 10 days. cc: MD Dr. Erich Veliz
== END 2019-05-24 12:37 | disposition home health service (06) | DRG 189 ==
LOC: ED 19:33 → SUATTDRO 05-19 02:30 → EDIPHOLD 05-19 02:30 → 2N 05-19 17:16
PROVIDERS: ADMIT Internal Medicine; ATTEND Internal Medicine